=== PATIENT | male | born 1955 | race Caucasian/White ===

== ENCOUNTER → 2021-06-15 09:59 | Outpatient (BNVA) | payer OTHER, SELFPAY | PROVIDERS: Visit Provider Physician Assistant Medical | DX: S33.9XXA Sprain of unspecified parts of lumbar spine and pelvis, initial encounter (principal); X50.0XXA Overexertion from strenuous movement or load, initial encounter; X50.3XXA Overexertion from repetitive movements, initial encounter | CPT/HCPCS: 99203 ==

== ENCOUNTER → 2021-06-22 09:09 | Outpatient (BNVA) | payer OTHER, SELFPAY | PROVIDERS: Visit Provider Physician Assistant Medical | DX: S33.9XXA Sprain of unspecified parts of lumbar spine and pelvis, initial encounter (principal); X58.XXXA Exposure to other specified factors, initial encounter | CPT/HCPCS: 99213 ==

== ENCOUNTER 2025-06-02 08:58 | Outpatient (AMB) | payer MEDICARE, SELFPAY ==
--- OUTSIDE RECORDS SUMMARY | 2025-06-02 09:26 | XMS_ITS | Clinical Summary ---
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 for 90 days Active losartan (COZAAR) 100 mg tablet Take 1 tablet (100 mg total) by mouth 1 (one) time each day after lunch. Active tamsulosin (FLOMAX) 0.4 mg 24 hr capsule Take 1 capsule (0.4 mg total) by mouth 1 (one) time each day. Active traZODone (DESYREL) 50 mg tablet Take 1 tablet (50 mg total) by mouth at bedtime as needed. at bedtime 10/17/20 24 Active atorvastatin (LIPITOR) 40 mg tablet Take 1 tablet (40 mg total) by mouth 1 (one) time each day. for 90 days 03/21/20 25 Active doxepin (SINEquan) 10 mg capsule Take 1 capsule (10 mg total) by mouth at bedtime. 05/04/20 25 Active labetaloL (NORMODYNE) 200 mg tablet Take 1 tablet (200 mg total) by mouth 2 (two) times a day. Active omeprazole (PriLOSEC) [address] capsule Take 1 capsule (20 mg total) by mouth 1 (one) time each day if needed (ACID REFLUX). 04/21/20 25 Active UNKNOWN TO PATIENT PATIENT REPORTS 3 ASPIRIN, CANNOT VERIFY STRENGTH Active vancomycin (VANCOCIN) 500 mg injection Infuse 500 mg into a venous catheter See administration instructions for 10 days. Give 500 mg IV after dialysis on Tuesdays, , and Saturdays Stop date is 05/25/25 05/15/20 025 oxyCODONE (ROXICODONE) 5 mg immediate release tabletIndicati ons:Chest wall pain Take 1 tablet (5 mg total) by mouth every 6 (six) hours if needed for severe pain for up to 3 days. 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 ([facility] V24, [facility] V28) 02/17/2025 ESRD (end stage renal disease) ([facility] V24, [facility] V28) 11/15/2024 RSV (acute bronchiolitis due to respiratory syncytial virus) 11/15/2024 Acute hypoxic respiratory fa ilure ([facility] V24, [facility] V28) 11/15/2024 Hyperkalemia 11/13/2024 Acute kidney injury superimp osed on chronic kidney disease ([facility] V24) 01/25/2022 Overview (02/17/2025): D/C'd from [facility] 12/22/21 Anemia 01/25/2022 Overview (02/17/2025): secondary to chronic disease Diastolic heart failure ([facility] V24, [facility] V2 8) 01/25/2022 Overview (02/17/2025): D/C'd from [facility] 12/22/21 Chronic congestive heart failure ([facility] V24, [facility] V28) 01/25/2022 PVD (peripheral vascular disease) ([facility] V24) 01/25/2022 Hyperlipidemia 01/25/2022 Hypertensive chronic kidney disease with stage 5 chronic kidney disease or end stage renal disease ([facility] V24, [facility] V28) 09/02/2021 Stage 4 chronic kidney disease ([facility] V24, [facility] V28) 08/30/2021 Renal insufficiency 07/23/2012 Encounters Date Type Department Care Team Description 05/30/2025 6:52 PM EDT - 05/30/2025 9:43 PM EDT Emergency [facility] Emergency [address] [place] [phone] John Pizano MD Complication associated with dialysis catheter (Primary Dx) Discharge Disposition: Home or Self Care 05/27/2025 10:09 AM EDT - 05/27/2025 11:59 PM EDT Hospital Encounter [facility] Ultrasound [address] [place] [phone] Inguinal hernia of right side without obstruction or gangrene Discharge Disposition: Home or Self Care 05/20/2025 5:45 PM EDT - 05/22/2025 1:27 PM EDT Hospital Encounter [facility] Medical Surgical Unit [address] [place] [phone] Fredy Martinez MD Jones, Christopher, MD Kela, Kashyap Devendrabhai, MD ESRD (end stage renal disease) on dialysis ([facility] V24, [facility] V28) (Primary Dx); Chest wall pain Discharge Disposition: [place] [facility] [place] Reading General Surgery - [place] [address] [facility] [address] [place] [phone] Mehdi Phillips DO Prior Authorization (06/12/25 Dr. Mehdi Phillips) 05/11/2025 4:15 PM EDT - 05/15/2025 5:34 PM EDT Hospital Encounter [facility] Intermediate Care Unit B [address] [place] [phone] David Thorne MD Bukalo MD Deon Arauz, Desmond Husain MD Bacteremia (Primary Dx) Discharge Disposition: Home or Self Care 04/16/2025 1:29 AM EDT - 04/16/2025 2:42 AM EDT Emergency [facility] Emergency [address] [place] [address] Carlotta Negron MD Abrasion of right cornea, initial encounter (Primary Dx) Discharge Disposition: Home or Self Care 03/16/2025 2:45 PM EDT Consult General Surgery - [place] 175 [facility] [address] [place] [address] Mehdi Phillips, Inguinal hernia of right side without obstruction or gangrene (Primary Dx); Right inguinal hernia from Last 3 Months Surgical History Surgery Date Site/Laterality Comments FOOT SURGERY PROCEDURE: HISTORICAL FOOT SURGERY; COMMENT: Transmetatarsal amputation of foot OTHER SURGICAL HISTORY 05/27/2022 PROCEDURE: [facility] INSJ TUNNELED CVC W/O SUBQ PORT/[employer] AND [employer] WASHER AGE 4 YR/> OTHER SURGICAL HISTORY 05/27/2022 PROCEDURE: ULTRASOUND GUIDANCE FOR VASCULAR AC OTHER SURGICAL HISTORY 08/15/2022 PROCEDURE: VA INTRO CATHETER SUPERIOR/INFERIOR VENA CAVA OTHER SURGICAL HISTORY 08/15/2022 PROCEDURE: X-RAY EXAM OF CHEST VEINS OTHER SURGICAL HISTORY 08/28/2022 Left PROCEDURE: VA RPLCMT COMPL TATY CVC W/O SUBQ PORT/[employer] WASHER Medical History Medical History Date Comments Diabetes ([facility] V24, [facility] V28) DX:Diabetes ([facility]) Anemia DX:Anemia; COMME NT: secondary to chronic disease Chronic kidney disease, stag e 3 ([facility] V24, [facility] V28) DX:Chronic kidney disease, s tage 3 ([facility]) BPH with urinary obstruction DX: BPH with urinary obstruction Diabetic neuropathy ([facility] V24, [facility] V28) DX:Diabetic neuropathy ([facility]) History of osteomyelitis DX:Hist ory of osteomyelitis Lower extremity edema DX:Lower e xtremity edema; COMMENT: Chronic Acute kidney injury superimp osed on chronic kidney disease ([facility] V24) DX:Acute kidney i njury superimposed on chronic kidney disease ([facility]); COMMENT: D/C'd from [facility] 12/22/21 Urinary retention DX:Urinary ret ention; COMMENT: D/C'd from [facility] 12/22/21 Dialysis patient ([facility] V24) Family History Medical History Relation Name Comments Diabetes Father Hypertension Father Diabetes Mother Hypertension Mother Relation Name Status Comments Father Mother Social History Tobacco Use Types Packs/Day Years Used Date Smoking Tobacco: Never Smokeless Tobacco: Never Alcohol Use Standard Drinks/Week Comments Not Currently 0 (1 standard drink = 0.6 oz pur e alcohol) Interpersonal Safety Answer Date Record ed Physical Abuse 05/21/2025 Verbal Abuse 05/21/2025 Sex and Gender Information Value Date Recorded Sex Assigned at Male 11/10/2024 3:05 PM EST Legal Sex Male 9:48 PM EST Gender Identity Male 11/10/2024 3:05 PM EST Sexual Orientation Choose not to disclose 2024 3:49 PM EST Sexual Orientation Straight 11/27/2024 3: 49 PM EST Obstetrics History Last Filed Vital Signs Vital Sign Reading Time Taken Comments Blood Pressure 129/51 05/30/2025 6:19 PM EDT Pulse 85 05/30/2025 6:19 PM EDT Temperature 36.7 C (98.1 F) 05/30/2025 6:19 PM EDT Respiratory Rate 16 05/30/2025 6:19 PM EDT Oxygen Saturation 100% 05/30/2025 6:19 PM EDT Inhaled Oxygen Concentration - - Weight 75.8 kg (167 lb) 05/30/2025 6:19 PM EDT Height 175.3 cm (5' 9 ) 05/30/2025 6:19 PM EDT Body Mass Index 24.66 05/30/2025 6:19 PM EDT Plan of Treatment Upcoming Encounters Date Type Department Care Team (Latest Contact Info) Description 06/12/2025 12:30 PM EDT Hospital Encounter [facility] Main OR [address] [place] [phone] Mehdi Phillips, DO [address] [address] 06/12/2025 12:30 PM EDT - 06/12/2025 2:30 PM EDT Surgery [facility] OR [address] [place] [phone] Mehdi Phillips, DO [address] [address] DAVINCI REPAIR RIGHT INGUINAL HERNIA W/MESH [[id number] (CPT )] 06/29/2025 1:00 PM EDT Office Visit General Surgery - [place] 175 [facility] [address] [place] [phone] Mehdi Phillips, DO [address] [address] Scheduled Procedures Name Priority Associated Diagnoses Date/Ti me REPAIR HERNIA INGUINAL ROBOT Right inguinal hernia 06/12/2025 12:30 PM EDT Health Maintenance Due Date Last Done Comments COVID-19 Vaccine (#1) 1959 Diabetes: Annual Foot Exam 1964 Diabetes: Annual Retina Eye Exam 1964 Zoster Vaccines (1 of 2) 1973 RSV Immunization Adult Patients (1 - Risk 60-74 years 1-dose series) 2014 Pneumococcal Vaccine: 50+ Years (2 of 2 - PCV) 09/19/2019 09/19/2018 Colorectal Cancer Screening: Colonoscopy 10/22/2022 Hepatitis C Screening 10/22/2022 Medicare Annual Wellness Visit 10/22/2022 Social Influencers of Health Screening 10/22/2022 Depression Screening 11/12/2024 Influenza Vaccine (#1) 2025 Diabetes: Blood Sugar Control Test (HGBA1C) 11/26/2025 05/26/2025, 05/26/2025, 02/12/2025, Additional history exists Falls Risk Assessment 05/22/2026 05/22/2025 Hypertension/CHF/CAD Annual BMP Blood Test 05/22/2026 05/22/2025, 05/21/2025, 05/20/2025, Additional history exists DTaP,Tdap,and Td Vaccines (2 - Td or Tdap) 09/19/2028 09/19/2018 Cholesterol Screening (Lipid Panel) 05/26/2030 05/26/2025, 02/12/2025, 09/19/2018 HIB Vaccines Aged Out No longer eligi ble based on patient's age to complete this topic HPV Vaccines Aged Out No longer eligi ble based on patient's age to complete this topic Hepatitis A Vaccines Aged Out No long er eligible based on patient's age to complete this topic Hepatitis B Vaccines Aged Out No long er eligible based on patient's age to complete this topic IPV Vaccines Aged Out No longer eligi ble based on patient's age to complete this topic MMR Vaccines Aged Out No longer eligi ble based on patient's age to complete this topic Meningococcal ACWY Vaccine Aged Out N o longer eligible based on patient's age to complete this topic Meningococcal B Vaccine Aged Out No l onger eligible based on patient's age to complete this topic RSV Immunization Patients Under 20 months Aged Out No longer eligible based on patient's age to complete this topic Varicella Vaccines Aged Out No longer eligible based on patient's age to complete this topic Medical Devices Implanted Type Area Advanced Seal Delivery System Device Identifier Shelf Expiration Date Model / Serial / Lot Cath Glidepath [id number] m Order In Mult Of 5ea - [id number] Implanted:Qty : 1 on 05/15/2025 by Taras Gates MD at [facility] Dialysis Catheters Right: Internal Jugular CR [employer] [id number] 10/11/2026 [id number] / / [id number] Procedures Procedure Name Priority Date/Time Associated Diagnosis Comments US ABDOMEN LIMITED Routine 05/27/2025 10 :30 AM EDT Inguinal hernia of right side without obstruction or gangrene ECG ANNOTATED 05/23/2025 MAGNESIUM Routine 05/22/2025 5:31 AM EDT BASIC METABOLIC PANEL Routine 05/22/2025 5:31 AM EDT COMPLETE BLOOD COUNT Routine 05/22/2025 5:31 AM EDT PHOSPHORUS Routine 05/22/2025 5:31 AM EDT HEMODIALYSIS INPATIENT Routine 10:47 AM EDT DIFFERENTIAL BODY FLUID Routine 05/21/2025 9:52 AM EDT LACTATE DEHYDROGENASE, BODY FLUID Routine 05/21/2025 9:52 AM EDT PROTEIN, BODY FLUID Routine 05/21/2025 9 :52 AM EDT CELL COUNT WITH REFLEX DIFFERENTIAL, BODY FLUID Routine 05/21/2025 9:52 AM EDT CULTURE BODY FLUID WITH GRAM STAIN Routine 05/21/2025 9:52 AM EDT US THORACENTESIS W IMAGE GUIDANCE RIGHT Routine 05/21/2025 9:51 AM EDT LACTATE DEHYDROGENASE Add-On 05/21/2025 4:47 AM EDT CBC WITH AUTO DIFFERENTIAL Routine 05/21/2025 4:47 AM EDT VANCOMYCIN, RANDOM Routine 05/21/2025 4: 47 AM EDT PROTHROMBIN TIME WITH INR Routine 05/21/2025 4:47 AM EDT CBC AND DIFFERENTIAL Routine 05/21/2025 4:47 AM EDT BASIC METABOLIC PANEL Routine 05/21/2025 4:47 AM EDT LACTATE, WITH REFLEX STAT 05/20/2025 9:20 PM EDT CULTURE BLOOD STAT 05/20/2025 9:20 PM EDT CULTURE BLOOD STAT 05/20/2025 9:[address] CHEST W CONTRAST STAT 05/20/2025 8 :30 PM EDT ECG 12-LEAD STAT 05/20/2025 6:02 PM EDT TROPONIN I HIGH SENSITIVITY STAT 05/20/2025 5:35 PM EDT XR CHEST 2 VIEWS STAT 05/20/2025 4:30 PM EDT PROCALCITONIN Add-On 05/20/2025 4:14 PM EDT VANCOMYCIN, RANDOM Routine 05/20/2025 4: 14 PM EDT CBC WITH AUTO DIFFERENTIAL STAT 05/20/2025 4:14 PM EDT B-TYPE NATRIURETIC PEPTIDE STAT 05/20/2025 4:14 PM EDT MAGNESIUM STAT 05/20/2025 4:14 PM EDT LIPASE STAT 05/20/2025 4:14 PM EDT COMPREHENSIVE METABOLIC PANEL STAT 05/20/2025 4:14 PM EDT CBC AND DIFFERENTIAL STAT 05/20/2025 4:14 PM EDT TROPONIN I HIGH SENSITIVITY STAT 05/20/2025 4:14 PM EDT ECG 12-LEAD STAT 05/20/2025 4:10 PM EDT ECG ANNOTATED 05/16/2025 ECG ANNOTATED 05/16/2025 IR INSERT TUNNELED CVC WO PORT OR PUMP MORE 5YRS LEFT Routine 05/15/2025 10:50 AM EDT CBC WITH AUTO DIFFERENTIAL Routine 05/15/2025 5:40 AM EDT MAGNESIUM Routine 05/15/2025 5:40 AM EDT BASIC METABOLIC PANEL Routine 05/15/2025 5:40 AM EDT CBC AND DIFFERENTIAL Routine 05/15/2025 5:40 AM EDT HEMODIALYSIS INPATIENT Routine 10:57 PM EDT CBC WITH AUTO DIFFERENTIAL Routine 05/14/2025 5:57 AM EDT MAGNESIUM Routine 05/14/2025 5:57 AM EDT BASIC METABOLIC PANEL Routine 05/14/2025 5:57 AM EDT CBC AND DIFFERENTIAL Routine 05/14/2025 5:57 AM EDT VANCOMYCIN, RANDOM Routine 05/14/2025 5: 57 AM EDT TRANSTHORACIC ECHOCARDIOGRAM (TTE) COMPLETE Routine 05/13/2025 1:50 PM EDT Bacteremia POCT GLUCOSE BLOOD Routine 05/13/2025 8: 36 AM EDT CBC WITH AUTO DIFFERENTIAL Routine 05/13/2025 5:34 AM EDT MAGNESIUM Routine 05/13/2025 5:34 AM EDT BASIC METABOLIC PANEL Routine 05/13/2025 5:34 AM EDT CBC AND DIFFERENTIAL Routine 05/13/2025 5:34 AM EDT POCT GLUCOSE BLOOD Routine 05/12/2025 8: 39 PM EDT CULTURE BLOOD STAT 05/12/2025 8:20 PM EDT CULTURE BLOOD STAT 05/12/2025 8:10 PM EDT POCT GLUCOSE BLOOD Routine 05/12/2025 4: 33 PM EDT HEMODIALYSIS INPATIENT Routine 2:17 PM EDT POCT GLUCOSE BLOOD Routine 05/12/2025 11 :21 AM EDT POCT GLUCOSE BLOOD Routine 05/12/2025 7: 27 AM EDT TROPONIN I HIGH SENSITIVITY Routine 05/12/2025 5:31 AM EDT COMPLETE BLOOD COUNT Routine 05/12/2025 5:31 AM EDT BASIC METABOLIC PANEL Routine 05/12/2025 5:31 AM EDT ECG 12-LEAD STAT 05/11/2025 9:55 PM EDT POCT GLUCOSE BLOOD Routine 05/11/2025 9: 49 PM EDT TROPONIN I HIGH SENSITIVITY Routine 05/11/2025 8:45 PM EDT LACTATE, WITH REFLEX Timed 05/11/2025 8:45 PM EDT US ABDOMEN LIMITED Routine 05/11/2025 7: 37 PM EDT RESPIRATORY VIRUS PANEL MOLECULAR STUDY STAT 05/11/2025 6:54 PM EDT LACTATE Routine 05/11/2025 6:52 PM EDT LACTATE, WITH REFLEX STAT 05/11/2025 6:23 PM EDT TROPONIN I HIGH SENSITIVITY STAT 05/11/2025 6:23 PM EDT BLOOD CULTURE PATHOGENS BY PCR Routine 05/11/2025 6:23 PM EDT CULTURE BLOOD STAT 05/11/2025 6:23 PM EDT CULTURE BLOOD STAT 05/11/2025 6:[address] CHEST WO CONTRAST STAT 05/11/2025 5:50 PM EDT XR CHEST 2 VIEWS STAT 05/11/2025 3:28 PM EDT CBC WITH AUTO DIFFERENTIAL STAT 05/11/2025 2:46 PM EDT B-TYPE NATRIURETIC PEPTIDE STAT 05/11/2025 2:46 PM EDT MAGNESIUM STAT 05/11/2025 2:46 PM EDT LIPASE STAT 05/11/2025 2:46 PM EDT COMPREHENSIVE METABOLIC PANEL STAT 05/11/2025 2:46 PM EDT CBC AND DIFFERENTIAL STAT 05/11/2025 2:46 PM EDT TROPONIN I HIGH SENSITIVITY STAT 05/11/2025 2:46 PM EDT HEMOGLOBIN A1C Routine 11/15/2024 6:17 AM EST from Last 3 Months or Most Recently Relevant to Health Maintenance Results * US Abdomen Limited (05/27/2025 10:30 AM EDT) Only the most recent of2 resultswithin the time period is included. Anatomical Region Laterality Modality Body Ultrasound 05/29/2025 10:1 8 AM EDT Impressions 05/29/2025 10:19 AM EDT Moderate four-quadrant ascites. -------- FINAL REPORT -------- Dictated By: Ian Camarena Dictated Date: 05/29/2025 10:18 ET Assigned Physician: Ian Camarena Reviewed and Electronically Signed By: Ian Camarena Signed Date: 05/29/2025 10:19 ET Workstation ID: [id number] Transcribed By: Self Edit Transcribed Date: 05/29/2025 10:18 ET Narrative 05/29/2025 10:19 AM EDT PROCEDURE: Right upper quadrant ultrasound. HISTORY: 1-2 weeks prior to planned inguinal hernia surgery, drain ascites if seen. COMPARISON: 05/11/2025. TECHNIQUE: Grayscale ultrasound evaluation of the abdomen to assess for ascites. FINDINGS: Moderate four-quadrant ascites, more prominent in the upper abdomen. Nodular liver contour suggestive of cirrhosis. Detailed evaluation of the abdominal organs was not performed. Procedure Note Ian Camarena MD - 05/29/2025 PROCEDURE: Right upper quadrant ultrasound. HISTORY: 1-2 weeks prior to planned inguinal hernia surgery, drain ascitesif seen. COMPARISON: 05/11/2025. TECHNIQUE: Grayscale ultrasound evaluation of the abdomen to assess forascites. FINDINGS: Moderate four-quadrant ascites, more prominent in the upper abdomen.Nodular liver contour suggestive of cirrhosis. Detailed evaluation of theabdominal organs was not performed. IMPRESSION: Moderate four-quadrant ascites. -------- FINAL REPORT -------- Dictated By: Ian Camarena Dictated Date: 05/29/2025 10:18 ET Assigned Physician: Ian Camarena Reviewed and Electronically Signed By: Ian Camarena Signed Date: 05/29/2025 10:19 ET Workstation ID: [id number] Transcribed By: Self Edit Transcribed Date: 05/29/2025 10:18 ET us Mehdi Phillips DO IMG US PROCEDURES Final Result * ECG-Annotated (05/23/2025) Only the most recent of3 resultswithin the time period is included. us Provider Onbase ECG ORDERABLES Final Result * (ABNORMAL) Complete blood count (05/22/2025 5:31 AM EDT) Only the most recent of2 resultswithin the time period is included. WBC 11.1(H) 4.8 - 10.8 K/mcL LAB HEMETOLOGY METHOD 05/22/2025 7:00 AM EDT [facility] RBC 3.40(L) 4.50 - 5.50 M/mcL LAB HEMETOLOGY METHOD 05/22/2025 7:00 AM EDT [facility] Hemoglobin 10.2(L) 13.5 - 17.5 g/dL LAB [facility] Hematocrit 33.6(L) 42.0 - 54.0 % LAB HEMETOLOGY METHOD 05/22/2025 7:00 AM EDT [facility] MCV 100.0(H) 79.0 - 98.0 FL LAB [facility]OLOG[facility]22[facility]25 [facility] MCH 30.4 27.0 - 32.0 pcg LAB HEMETOLOGY METHOD 05/22/2025 7:00 AM EDT [facility] MCHC 30.4(L) 32.0 - 37.0 g/dL LAB HEMETOLOGY METHOD 05/22/2025 7:00 AM EDT [facility] RDW 16.5(H) 11.0 - 15.0 % LAB HEMETOLOGY METHOD 05/22/2025 7:00 AM [facility] Platelets 69(L) 130 - 400 K/mcL LAB HEMETOLOGY METHOD 05/22/2025 7:00 AM EDT [facility] Comment:previously verified by slide MPV 13.1(H) 7.0 - 11.0 FL LAB HEMETOLOGY METHOD 05/22/2025 7:00 AM EDT [facility] NRBC 0.0 <1.0 % LAB HEMETOLOGY METHOD 05/22/2025 7:00 AM [facility] NRBC Absolute 0.00 <0.10 K/mcL LAB HEMETOLOGY METHOD 05/22/2025 7:00 AM [facility] Blood Venous blood specimen / Unknown Venipuncture / Unknown 05/22/2025 5:31 AM EDT 05/22/2025 6:16 AM EDT Pedro Mcnally MD LAB BLOOD ORDERABLE S Final Result [facility] [address] [place] [address], * (ABNORMAL) Phosphorus (05/22/2025 5:31 AM EDT) [facility] Phosphorus 5.8(H) 2.5 - 4.5 mg/dL LAB CHEMISTRY METHOD 05/22/2025 7:12 AM EDT [facility] Blood Venous blood specimen / Unknown Venipuncture / Unknown 05/22/2025 5:31 AM EDT 05/22/2025 6:16 AM EDT us Pedro Mcnally MD LAB BLOOD ORDERABLE S Final Result Performing Organization Address City/[facility]/ZIP Co de Phone Number [facility] [address] [place] [address], [place] [phone] * Magnesium (05/22/2025 5:31 AM EDT) Only the most recent of6 resultswithin the time period is included. [facility] Magnesium 2.1 1.9 - 2.6 mg/dL LAB CHEMISTRY METHOD 05/22/2025 7:12 AM EDT [facility] Blood Venous blood specimen / Unknown Venipuncture / Unknown 05/22/2025 5:31 AM EDT 05/22/2025 6:16 AM EDT us Pedro Mcnally MD LAB BLOOD ORDERABLE S Final Result [facility] [address] [place] [address], [place] [phone] * (ABNORMAL) Basic metabolic panel (05/22/2025 5:31 AM EDT) Only the most recent of6 resultswithin the time period is included. [facility] Sodium 137 133 - 145 mmol/L LAB CHEMISTRY METHOD 05/22/2025 7:16 AM EDT [facility] Potassium 3.7 3.5 - 5.5 mmol/L LAB CHEMISTRY METHOD 05/22/2025 7:16 AM [facility] Chloride 99 96 - 110 mmol/L LAB CHEMISTRY METHOD 05/22/2025 7:16 AM [facility] CO2 28 21 - 32 mmol/L LAB CHEMISTRY METHOD 05/22/2025 7:16 AM [facility] Anion Gap 10 3 - 11 LAB CHEMISTRY METHOD 05/22/2025 7:16 AM [facility] Glucose 148(H) 70 - 100 mg/dL LAB CHEMISTRY METHOD 05/22/2025 7:16 AM [facility] BUN 27(H) 5 - 25 mg/dL LAB CHEMISTRY METHOD 05/22/2025 7:16 AM [facility] Creatinine 5.85(H) 0.70 - 1.30 mg/dL LAB CHEMISTRY METHOD 05/22/2025 7:16 AM [facility] eGFR 10(L) >=60 mL/min/1. 73m2 LAB CHEMISTRY METHOD 05/22/2025 7:16 AM [facility] Comment:Calculation based on the Chronic Kidney Disease Epidemiology Collaboration (CKD-EPI) equation refit without adjustment for race. BUN/Creatinine Ratio 4.6 LAB CHEMISTRY METHOD 05/22/2025 7:16 AM [facility] Calcium 8.4(L) 8.5 - 10.5 mg/dL LAB CHEMISTRY METHOD 05/22/2025 7:16 AM [facility] Blood Venous blood specimen / Unknown Venipuncture / Unknown 05/22/2025 5:31 AM EDT 05/22/2025 6:16 AM EDT Pedro Mcnally MD LAB BLOOD ORDERABLE S Final Result [facility] [address] [place] [address], [place] [phone] * Cell count with reflex differential, body fluid (05/21/2025 9:52 AM EDT) Body Fluid Total Nucleated Cells 12 /mm3 LAB HEMETOLOGY METHOD 05/21/2025 11:13 AM EDT [facility] Body Fluid RBC <1,000 /mm3 LAB HEMETOLOGY METHOD 05/21/2025 11:13 AM EDT [facility] Body Fluid Color Straw 05/21/2025 11:13 AM EDT [facility] Body Fluid Clarity Clear 05/21/2025 11:13 AM EDT [facility] Body Fluid Source Pleural 05/21/2025 11:13 AM EDT [facility] Pleural Fluid Non-blood Collection / Unknown 05/21/2025 9:52 AM EDT 05/21/2025 10:02 AM EDT Narrative [facility] - 05/21/2025 11:13 AM EDT No reference ranges have been established for body fluids. Clinical correlation recommended. Pedro Mcnally MD LAB BODY FLUIDS AND STOOLS ORDERABLES Final Result [facility] [address] [place] [address], * Culture body fluid with gram stain (05/21/2025 9:52 AM EDT) Fluid Culture No growth at 3 days LAB MICROBIOLOGY METHOD 05/24/2025 8:56 AM EDT [facility] Gram Stain Result No polymorphonuclear leukocytes, No epithelial cells, and No organisms noted 05/24/2025 8:56 AM EDT [facility] Pleural Fluid Structure of right pleural cavity / Unknown Non-blood Collection / Unknown 05/21/2025 9:52 AM EDT 05/21/2025 10:02 AM EDT us Pedro Mcnally MD LAB MICROBIOLOGY - GENERAL ORDERABLES Final Result Performing Organization Address [facility]/ZIP Co de Phone Number [facility] [address] [place] [address], [place] [phone] * Differential body fluid (05/21/2025 9:52 AM EDT) Fluid Neutrophils % 13 % 05/21/2025 11:13 AM EDT [facility] Fluid Lymphocytes % 10 % 05/21/2025 11:13 AM EDT [facility] Fluid Monocytes/Macrop hages 77 % 05/21/2025 11:13 AM EDT [facility] Fluid Eosinophils % 0 % 05/21/2025 11:13 AM EDT [facility] Fluid Basophils % 0 % 05/21/2025 11:13 AM EDT [facility] Fluid Other Cells % 0 % 05/21/2025 11:13 AM EDT [facility] Pleural Fluid Non-blood Collection / Unknown 05/21/2025 9:52 AM EDT 05/21/2025 10:02 AM EDT Narrative [facility] - 05/21/2025 11:13 AM EDT No reference ranges have been established for body fluids. Clinical correlation recommended. us Pedro Mcnally MD LAB BODY FLUIDS AND STOOLS ORDERABLES Final Result Performing Organization Address City/[facility]/ZIP Co de Phone Number [facility] [address] [place] [address], [place] [phone] * Protein, body fluid (05/21/2025 9:52 AM EDT) Protein, Fluid 2.7 See Comment g/dL LAB CHEMISTRY METHOD 05/21/2025 11:44 AM EDT [facility] Pleural Fluid Structure of right pleural cavity / Unknown Non-blood Collection / Unknown 05/21/2025 9:52 AM EDT 05/21/2025 10:02 AM EDT [facility] - 05/21/2025 11:44 AM EDT No reference ranges have been established for body fluids. Clinical correlation recommended. us Pedro Mcnally MD LAB BODY FLUIDS AND STOOLS ORDERABLES Final Result Performing Organization Address [facility] Co de Phone Number [facility] [address] [place] [address], [place] [phone] * Lactate dehydrogenase, body fluid (05/21/2025 9:52 AM EDT) LD, Fluid 91 See Comment unit/L LAB CHEMISTRY METHOD 05/21/2025 11:44 AM EDT [facility] Pleural Fluid Structure of right pleural cavity / Unknown Non-blood Collection / Unknown 05/21/2025 9:52 AM EDT 05/21/2025 10:02 AM EDT [facility] - 05/21/2025 11:44 AM EDT No reference ranges have been established for body fluids. Clinical correlation recommended. us Pedro Mcnally MD LAB BODY FLUIDS AND STOOLS ORDERABLES Final Result Performing Organization Address [facility] Co de Phone Number [facility] [address] [place] [address], [place] [phone] * US Thoracentesis w Image Guidance Right (05/21/2025 9:51 AM EDT) Anatomical Region Laterality Modality Body Right Ultrasound 05/21/2025 10:0 4 AM EDT Impressions 05/21/2025 10:06 AM EDT Impression: Right-sided ultrasound-guided thoracentesis as described. -------- FINAL REPORT -------- Dictated By: Jay Oneal Dictated Date: 05/21/2025 10:04 ET Assigned Physician: Jay Oneal Reviewed and Electronically Signed By: Jay Oneal Signed Date: 05/21/2025 10:06 ET Workstation ID: [id number] Transcribed By: Self Edit Transcribed Date: 05/21/2025 10:04 ET Narrative 05/21/2025 10:06 AM EDT Ultrasound-guided thoracentesis. History: Right-sided chest pain. Pleural effusion. History of chronic ascites. Comparison: CT chest yesterday Operators: Jay Oneal M.D. Technique: The risks and benefits of the procedure were discussed with the patient. The risks discussed include, but were not limited to: pain, bleeding, infection, organ injury and pneumothorax. The patient provided written informed consent. full time staff interpreter was utilized through the procedure. A timeout was performed prior to the procedure. Ultrasound was utilized to identify suitable access site in the right posterior chest. The overlying skin was prepped and draped in the usual and customary sterile fashion. Buffered 1% lidocaine was utilized to anesthetize the overlying skin and soft tissues. Under ultrasound guidance, a 5 Barbadian Yueh catheter was advanced into the pleural space. The catheter was advanced over the needle and the needle removed. After evacuation of fluid, the catheter was removed. Subsequent ultrasound demonstrates complete resolution of the pleural fluid. There was minimal bleeding. The patient tolerated procedure well with no immediate complications. Findings: Anechoic right-sided pleural effusion noted. A total of 750 cc of clear yellow pleural fluid was evacuated. Fluid samples were provided as requested. Procedure Note Jay Oneal MD - 05/21/2025 Ultrasound-guided thoracentesis. History: Right-sided chest pain. Pleural effusion. History of chronicascites. Comparison: CT chest yesterday Operators: Jay Oneal M.D. Technique: The risks and benefits of the procedure were discussed with thepatient. The risks discussed include, but were not limited to: pain,bleeding, infection, organ injury and pneumothorax. The patient providedwritten informed consent. full time staff interpreter was utilized through theprocedure. A timeout was performed prior to the procedure. Ultrasound was utilized toidentify suitable access site in the right posterior chest. The overlyingskin was prepped and draped in the usual and customary sterile fashion.Buffered 1% lidocaine was utilized to anesthetize the overlying skin andsoft tissues. Under ultrasound guidance, a 5 Barbadian Yueh catheter was advanced into thepleural space. The catheter was advanced over the needle and the needleremoved. After evacuation of fluid, the catheter was removed. Subsequentultrasound demonstrates complete resolution of the pleural fluid. Therewas minimal bleeding. The patient tolerated procedure well with noimmediate complications. Findings: Anechoic right-sided pleural effusion noted. A total of 750 ccof clear yellow pleural fluid was evacuated. Fluid samples were provided as requested. IMPRESSION: Impression: Right-sided ultrasound-guided thoracentesis as described. -------- FINAL REPORT -------- Dictated By: Jay Oneal Dictated Date: 05/21/2025 10:04 ET Assigned Physician: Jay Oneal Reviewed and Electronically Signed By: Jay Oneal Signed Date: 05/21/2025 10:06 ET Workstation ID: [id number] Transcribed By: Self Edit Transcribed Date: 05/21/2025 10:04 ET Saad FOSS IMG US PROCEDURES Final Result * (ABNORMAL) CBC auto differential (05/21/2025 4:47 AM EDT) Only the most recent of6 resultswithin the time period is included. WBC 9.5 4.8 - 10.8 K/mcL LAB HEMETOLOGY METHOD 05/21/2025 5:43 AM EDT [facility] RBC 3.60(L) 4.50 - 5.50 M/[facility] LAB HEMETOLOGY METHOD 05/21/2025 5:43 AM EDT [facility] Hemoglobin 10.8(L) 13.5 - 17.5 g/dL LAB HEMETOLOGY METHOD 05/21/2025 5:43 AM EDT [facility] Hematocrit 35.4(L) 42.0 - 54.0 % LAB HEMETOLOGY METHOD 05/21/2025 5:43 AM [facility] MCV 98.6(H) 79.0 - 98.0 FL LAB HEMETOLOGY METHOD 05/21/2025 5:43 AM [facility] MCH 30.1 27.0 - 32.0 pcg LAB HEMETOLOGY METHOD 05/21/2025 5:43 AM [facility] MCHC 30.5(L) 32.0 - 37.0 g/dL LAB HEMETOLOGY METHOD 05/21/2025 5:43 AM [facility] RDW 16.5(H) 11.0 - 15.0 % LAB HEMETOLOGY METHOD 05/21/2025 5:43 AM [facility] Platelets 74(L) 130 - 400 K/mcL LAB HEMETOLOGY METHOD 05/21/2025 5:43 AM [facility] Comment:previously verified by slide MPV 12.7(H) 7.0 - 11.0 FL LAB HEMETOLOGY METHOD 05/21/2025 5:43 AM [facility] NRBC 0.0 <1.0 % LAB HEMETOLOGY METHOD 05/21/2025 5:43 AM [facility] NRBC Absolute 0.00 <0.10 K/mcL LAB HEMETOLOGY METHOD 05/21/2025 5:43 AM [facility] Neutrophils Relative 80.5 % LAB HEMETOLOGY METHOD 05/21/2025 5:43 AM [facility] Lymphocytes Relative 9.8 % LAB HEMETOLOGY METHOD 05/21/2025 5:43 AM [facility] Monocytes Relative 6.2 % LAB HEMETOLOGY METHOD 05/21/2025 5:43 AM [facility] Eosinophils Relative 2.7 % LAB HEMETOLOGY METHOD 05/21/2025 5:43 AM [facility] Basophils Relative 0.3 % LAB HEMETOLOGY METHOD 05/21/2025 5:43 AM EDT [facility] Immature Granulocytes Relative 0.5 % LAB HEMETOLOGY METHOD 05/21/2025 5:43 AM EDT [facility] Neutrophils Absolute 7.61(H) 1.50 - 7.00 K/mcL LAB HEMETOLOGY METHOD 05/21/2025 5:43 AM EDT [facility] Lymphocytes Absolute 0.93(L) 1.00 - 5.00 K/mcL LAB HEMETOLOGY METHOD 05/21/2025 5:43 AM EDT [facility] Monocytes Absolute 0.59 0.20 - 1.00 K/mcL LAB HEMETOLOGY METHOD 05/21/2025 5:43 AM EDT [facility] Eosinophils Absolute 0.26 0.00 - 0.50 K/mcL LAB HEMETOLOGY METHOD 05/21/2025 5:43 AM EDT [facility] Basophils Absolute 0.03 0.00 - 0.20 K/mcL LAB HEMETOLOGY METHOD 05/21/2025 5:43 AM EDT [facility] Immature Granulocytes Absolute 0.05(H) 0.00 - 0.03 K/mcL LAB HEMETOLOGY METHOD 05/21/2025 5:43 AM EDT [facility] Blood Venous blood specimen / Unknown Venipuncture / Unknown 05/21/2025 4:47 AM EDT 05/21/2025 5:20 AM EDT us Zeus Wong MD LAB BLOOD ORDERABLES Final Result [facility] [address] [place] [address], * (ABNORMAL) Prothrombin time with INR (05/21/2025 4:47 AM EDT) Protime 16.5(H) 10.6 - 13.9 sec LAB COAGULATION METHOD 05/21/2025 5:28 AM EDT [facility] INR 1.3 LAB COAGULATION METHOD 05/21/2025 5:28 AM EDT [facility] Blood Venous blood specimen / Unknown Venipuncture / Unknown 05/21/2025 4:47 AM EDT 05/21/2025 5:20 AM EDT Zeus Wong MD LAB BLOOD ORDERABLES Final Result Performing Organization Address City/[facility]/ZIP Co de Phone Number [facility] [address] [place] [address], [place] [phone] * Lactate dehydrogenase (05/21/2025 4:47 AM EDT) LDH 221 120 - 246 unit/L LAB CHEMISTRY METHOD 05/21/2025 9:26 AM EDT [facility] Blood Venous blood specimen / Unknown Venipuncture / Unknown 05/21/2025 4:47 AM EDT 05/21/2025 5:20 AM EDT Pedro Mcnally MD LAB BLOOD ORDERABLE S Final Result Performing Organization Address City/[facility]/ZIP Co de Phone Number [facility] [address] [place] [address], [place] [phone] * Vancomycin random (05/21/2025 4:47 AM EDT) Only the most recent of3 resultswithin the time period is included. Vancomycin Rm 24.2 mcg/mL LAB CHEMISTRY METHOD 05/21/2025 5:47 AM EDT [facility] Blood Venous blood specimen / Unknown Venipuncture / Unknown 05/21/2025 4:47 AM EDT 05/21/2025 5:20 AM EDT Fredy Martinez MD LAB BLOOD ORDERABLES Final Resu lt Performing Organization Address City/[facility]/ZIP Co de Phone Number [facility] [address] [place] [address], [place] [phone] * Lactate, with reflex (05/20/2025 9:20 PM EDT) Only the most recent of3 resultswithin the time period is included. LACTIC ACID 2.0 0.4 - 2.0 mmol/L LAB CHEMISTRY METHOD 05/20/2025 10:12 PM EDT [facility] Blood Venous blood specimen / Unknown Venipuncture / Unknown 05/20/2025 9:20 PM EDT 05/20/2025 9:30 PM EDT Fredy Martinez MD LAB BLOOD ORDERABLES Final Resu lt Performing Organization Address [facility] Co de Phone Number [facility] [address] [place] [address], [place] [phone] * Culture blood (05/20/2025 9:20 PM EDT) Only the most recent of6 resultswithin the time period is included. Culture, Blood No growth at 5 days 05/25/2025 10:02 PM EDT [facility] Blood Venous blood specimen / Unknown Venipuncture / Unknown 05/20/2025 9:20 PM EDT 05/20/2025 9:30 PM EDT Fredy Martinez MD LAB MICROBIOLOGY - GENERAL ORDYuko RABVIDHI Final Result Performing Organization Address [facility] Co de Phone Number [facility] [address] [place] [address], [place] [phone] * CT Chest w Contrast (05/20/2025 8:30 PM EDT) Anatomical Region Laterality Modality Body Computed Tomogra phy 05/20/2025 9:14 PM EDT Impressions 05/20/2025 9:14 PM EDT Impression: No hematoma or abscess is identified adjacent to the central line. Findings consistent with pulmonary edema. Moderate to large right pleural effusion. Mild mediastinal adenopathy may be reactive but is technically indeterminate recommend follow-up. Large amount of ascites in the upper abdomen. This document has been electronically signed by: Natalio Mosher MD on 05/20/2025 21:14:09 Narrative 05/20/2025 9:14 PM EDT INDICATION: right chest pain around new dialysis catheter, cq hematoma/abscess/cellulitis/ptx CT of the chest utilizing intravenous contrast. Comparison 05/11/2025. Findings: There is evidence of prior granulomatous disease. There is a moderate to large right pleural effusion. Mild mediastinal adenopathy is technically indeterminate. There is a right internal jugular central line. A small portion of the catheter in the neck is incompletely visualized. No definite hematoma or abscess is identified. There is interstitial pulmonary edema. Mild patchy airspace opacities bilaterally may represent mild edema as well. The liver is mildly lobulated. There is a large amount of ascites. Procedure Note David Mosher MD - 05/20/2025 INDICATION: right chest pain around new dialysis catheter, cq hematoma/abscess/cellulitis/ptx CT of the chest utilizing intravenous contrast. Comparison 05/11/2025. Findings: There is evidence of prior granulomatous disease. There is a moderate to large right pleural effusion. Mild mediastinal adenopathy is technically indeterminate. There is a right internal jugular central line. A small portion of the catheter in the neck is incompletely visualized. No definite hematoma or abscess is identified. There is interstitial pulmonary edema. Mild patchy airspace opacities bilaterally may represent mild edema as well. The liver is mildly lobulated. There is a large amount of ascites. IMPRESSION: Impression: No hematoma or abscess is identified adjacent to the central line. Findings consistent with pulmonary edema. Moderate to large right pleural effusion. Mild mediastinal adenopathy may be reactive but is technically indeterminate recommend follow-up. Large amount of ascites in the upper abdomen. This document has been electronically signed by: Natalio Mosher MD on 05/20/2025 21:14:09 us Fredy Martinez MD IMG CT PROCEDURES Final Result * ECG 12 lead (05/20/2025 6:02 PM EDT) Only the most recent of3 resultswithin the time period is included. [facility] Ventricular Rate ECG 79 BPM GEMUSE Atrial Rate 79 BPM GEMUSE P-R Interval 140 ms GEMUSE QRS Duration 114 ms GEMUSE Q-T Interval 442 ms GEMUSE QTc 506 ms GEMUSE P Wave [place] 47 degrees GEMUSE R [place] -43 degrees GEMUSE T [place] 88 degrees GEMUSE ECG Interpretation Normal sinus rhythm Left axis deviation Poor R wave progression Nonspecific ST and T wave abnormality Abnormal ECG When compared with ECG of 20-MAY-2025 16:10, (unconfirmed) No significant change was found Confirmed by Renuka MARTINES YUFENG ([id number]) on 05/21/2025 8:29:33 AM GEMUSE 05/20/2025 6:02 PM EDT 05/21/2025 8:29 AM EDT Fredy Martinez MD ECG ORDERABLES Final Result GEMUSE * (ABNORMAL) Troponin I high sensitivity (05/20/2025 5:35 PM EDT) Only the most recent of6 resultswithin the time period is included. [facility] High Sensitivity Troponin I 313(HH) <=79 ng/L LAB CHEMISTRY METHOD 05/20/2025 7:29 PM EDT [facility] Blood Venous blood specimen / Unknown Venipuncture / Unknown 05/20/2025 5:35 PM EDT 05/20/2025 6:22 PM EDT Narrative [facility] - 05/20/2025 7:29 PM EDT High levels of biotin in samples may falsely decrease hsTroponin values. Use caution when interpreting hsTroponin results in patients taking biotin who exhibit renal impairment (eGFR <60) or in patients taking more than 20 mg/day of biotin. us Fredy Martinez MD LAB BLOOD ORDERABLES Final Resu lt [facility] [address] [place] [address], [place] [phone] * XR Chest 2 Views (05/20/2025 4:30 PM EDT) Only the most recent of2 resultswithin the time period is included. Anatomical Region Laterality Modality Body Radiographic Yuliana ging 05/20/2025 4:54 PM EDT Impressions 05/20/2025 4:56 PM EDT Impression: 1. Stable mild cardiomegaly. 2. Small right pleural effusion, unchanged. 3. Permacath well-positioned. Telerad PIPO ([id number]) -------- FINAL REPORT -------- Dictated By: Becki Aviles Dictated Date: 05/20/2025 16:54 ET Assigned Physician: Becki Aviles Reviewed and Electronically Signed By: Becki Aviles Signed Date: 05/20/2025 16:56 ET Workstation ID: [id number] Transcribed By: Self Edit Transcribed Date: 05/20/2025 16:54 ET Narrative 05/20/2025 4:56 PM EDT History: Chest pain. Comparison: 05/11/25, 11/13/24, thoracic CT 05/11/25 Findings: PA and lateral views. The cardiac silhouette remains mildly enlarged. A permacath is seen on the right, the tip position at the level of the right atrium. This is new from the previous study. The left permacath noted previously is no longer seen. The pulmonary vascularity appears within normal limits. No hilar enlargement is seen. The right costophrenic angle is blunted, consistent with a small pleural effusion, also noted previously. Procedure Note Becki Aviles MD - 05/20/2025 History: Chest pain. Comparison: 05/11/25, 11/13/24, thoracic CT 05/11/25 Findings: PA and lateral views. The cardiac silhouette remains mildly enlarged. Apermacath is seen on the right, the tip position at the level of the rightatrium. This is new from the previous study. The left permacath notedpreviously is no longer seen. The pulmonary vascularity appears within normal limits. No hilarenlargement is seen. The right costophrenic angle is blunted, consistentwith a small pleural effusion, also noted previously. IMPRESSION: Impression: 1. Stable mild cardiomegaly. 2. Small right pleural effusion, unchanged. 3. Permacath well-positioned. Telerad PA ([id number]) -------- FINAL REPORT -------- Dictated By: Becki Aviles Dictated Date: 05/20/2025 16:54 ET Assigned Physician: Becki Aviles Reviewed and Electronically Signed By: Becki Aviles Signed Date: 05/20/2025 16:56 ET Workstation ID: [id number] Transcribed By: Self Edit Transcribed Date: 05/20/2025 16:54 ET us Fredy Martinez MD IMG XR PROCEDURES Final Result * (ABNORMAL) Procalcitonin (05/20/2025 4:14 PM EDT) Procalcitonin 0.86(H) <=0.16 ng/mL LAB CHEMISTRY METHOD 05/21/2025 10:10 AM EDT [facility] Blood Venous blood specimen / Unknown Venipuncture / Unknown 05/20/2025 4:14 PM EDT 05/20/2025 4:39 PM EDT Narrative [facility] - 05/21/2025 10:10 AM EDT Procalcitonin > 2.00 ng/ml: Procalcitonin Levels above 2.00 ng/ml, on the first day of ICU admission represent a high risk for progression to severe sepsis and/or septic shock. Procalcitonin < 0.50 ng/ml: Procalcitonin levels below 0.50 ng/ml on the first day of ICU admission represent a low risk for progression to severe sepsis and/or septic shock. Concentrations <0.5 ng/mL do not exclude an infection, on account of local ized infections (without systemic signs) which can be associated with such low concentrations, or a systemic infection in its initial stages (<6 hours). Furthermore, increased procalcitonin can occur without infection. PCT concentrations between 0.5 and 2.0 ng/mL should be interpreted taking into account the patient's history. It is recommended to retest PCT within 6-24 hours if any concentrations <2.0 ng/mL are obtained. us Zeus Wong MD LAB BLOOD ORDERABLES Final Result Performing Organization Address [facility] de Phone Number [facility] [address] [place] [address], [place] [phone] * (ABNORMAL) B-type natriuretic peptide (05/20/2025 4:14 PM EDT) Only the most recent of2 resultswithin the time period is included. BNP >5,000(H) <=100 pcg/mL LAB CHEMISTRY METHOD 05/20/2025 5:38 PM EDT [facility] Blood Venous blood specimen / Unknown Venipuncture / Unknown 05/20/2025 4:14 PM EDT 05/20/2025 4:39 PM EDT us Fredy Martinez MD LAB BLOOD ORDERABLES Final Resu lt Performing Organization Address [facility] de Phone Number [facility] [address] [place] [address], [place] [phone] * Lipase (05/20/2025 4:14 PM EDT) Only the most recent of2 resultswithin the time period is included. Lipase 15 13 - 75 unit/L LAB CHEMISTRY METHOD 05/20/2025 6:02 PM EDT [facility] Blood Venous blood specimen / Unknown Venipuncture / Unknown 05/20/2025 4:14 PM EDT 05/20/2025 4:39 PM EDT us Fredy Martinez MD LAB BLOOD ORDERABLES Final Resu lt [facility] [address] [place] [address], * (ABNORMAL) Comprehensive metabolic panel (05/20/2025 4:14 PM EDT) Only the most recent of2 resultswithin the time period is included. Sodium 135 133 - 145 mmol/L LAB CHEMISTRY METHOD 05/20/2025 6:02 PM [facility] Potassium 4.1 3.5 - 5.5 mmol/L LAB CHEMISTRY METHOD 05/20/2025 6:02 PM [facility] Chloride 99 96 - 110 mmol/L LAB CHEMISTRY METHOD 05/20/2025 6:02 PM [facility] CO2 24 21 - 32 mmol/L LAB CHEMISTRY METHOD 05/20/2025 6:02 PM [facility] Anion Gap 12(H) 3 - 11 LAB CHEMISTRY METHOD 05/20/2025 6:02 PM [facility] Glucose 146(H) 70 - 100 mg/dL LAB CHEMISTRY METHOD 05/20/2025 6:02 PM [facility] BUN 44(H) 5 - 25 mg/dL LAB CHEMISTRY METHOD 05/20/2025 6:02 PM [facility] Creatinine 8.30(H) 0.70 - 1.30 mg/dL LAB CHEMISTRY METHOD 05/20/2025 6:02 PM [facility] eGFR 6(L) >=60 mL/min/1. 73m2 LAB CHEMISTRY METHOD 05/20/2025 6:02 PM [facility] Comment:Calculation based on the Chronic Kidney Disease Epidemiology Collaboration (CKD-EPI) equation refit without adjustment for race. BUN/Creatinine Ratio 5.3 LAB CHEMISTRY METHOD 05/20/2025 6:02 PM [facility] Calcium 8.9 8.5 - 10.5 mg/dL LAB CHEMISTRY METHOD 05/20/2025 6:02 PM EDT [facility] AST (SGOT) 16 10 - 42 unit/L LAB CHEMISTRY METHOD 05/20/2025 6:02 PM EDT [facility] ALT (SGPT) 14 10 - 60 unit/L LAB CHEMISTRY METHOD 05/20/2025 6:02 PM EDT [facility] Alkaline Phosphatase 111 42 - 121 unit/L LAB CHEMISTRY METHOD 05/20/2025 6:02 PM EDT [facility] Total Protein 7.5 6.0 - 8.0 g/dL LAB CHEMISTRY METHOD 05/20/2025 6:02 PM EDT [facility] Albumin 3.0(L) 3.2 - 5.0 g/dL LAB CHEMISTRY METHOD 05/20/2025 6:02 PM EDT [facility] Total Bilirubin 1.0 0.0 - 1.4 mg/dL LAB CHEMISTRY METHOD 05/20/2025 6:02 PM EDT [facility] Blood Venous blood specimen / Unknown Venipuncture / Unknown 05/20/2025 4:14 PM EDT 05/20/2025 4:39 PM EDT us Fredy Martinez MD LAB BLOOD ORDERABLES Final Resu lt [facility] [address] [place] [address], * IR Insert Tunneled CVC wo Port or Pump More 5yrs Left (05/15/2025 10:50 AM EDT) Anatomical Region Laterality Modality Left Interventional R adiology 05/15/2025 11:5 6 AM EDT Impressions 05/15/2025 11:59 AM EDT Removal of left-sided tunneled dialysis catheter. Placement of a 14 Barb[place] 23 cm dual-lumen cuffed tunneled dialysis catheter with the tip in the proximal right atrium. This line may be used immediately. -------- FINAL REPORT -------- Dictated By: Taras Gates Dictated Date: 05/15/2025 11:56 ET Assigned Physician: Taras Gates Reviewed and Electronically Signed By: Taras Gates Signed Date: 05/15/2025 11:59 ET Workstation ID: [id number] Transcribed By: Self Edit Transcribed Date: 05/15/2025 11:56 ET Narrative 05/15/2025 11:59 AM EDT HISTORY: Renal failure, coagulase-negative bacteremia with negative blood cultures TECHNIQUE: Case discussed with nephrology. Decision made to remove left-sided dialysis catheter in place a new catheter on the right side. Informed consent was obtained using a Georgian-speaking interpreter deaf after the risks, benefits and alternatives particularly to procedure were discussed in detail. Any questions were answered in detail. Informed consent was signed by the patient/patient's proxy and provider. Ultrasound interrogation demonstrates occluded of the mid to upper right internal jugular vein with patency of the most distal portion above the clavicle. Multiple venous collaterals visualized overlying the right lower neck. Left-sided dialysis catheter was draped and prepped sterilely. Timeout performed. Local anesthetic administered. Catheter removed completely and Dermabond applied to the exit site. Next the patient was placed supine on the angiographic table and the right lower neck and upper chest were draped and prepped using maximum sterile barrier. 2% buffered lidocaine was used as local anesthetic. Moderate intravenous sedation was initiated and maintained for 15 minutes while the patient was independently monitored by the radiology nurse under the supervision of the interventional radiologist. A total of 1.5 mg of Versed and 50 mcg of fentanyl administered during the procedure. Under real-time ultrasound guidance access was obtained into the internal jugular vein using a micropuncture needle. The microwire was advanced through the needle and fluoroscopically guided into the superior vena cava. The needle was exchanged for the 4 Barbadian transition sheath. A 0.035 wire was then advanced through the sheath and into the inferior vena cava under fluoroscopy. The sheath was then exchanged for a 7 Barbadian vascular dilator. Attention was then turned to the right upper chest and the appropriate area was anesthetized with 2% lidocaine. A small dermatotomy was performed and then a tunnel was created from the dermatotomy to the initial venous access site. The catheter was advanced through the tunnel. The initial venous access site was then serially dilated up to a 15 Barbadian peel- away sheath. The catheter was then advanced through the valve peel-away sheath which was subsequently removed. The position of the catheter was checked under fluoroscopy. The catheter was flushed and heparinized as per protocol. The initial venous access site was approximated with a single vertical mattress suture. The catheter was sutured to the skin with a suture around the exit site. These sutures should be removed in approximately 10 days. A sterile dressing was applied. The patient tolerated the procedure well and left the department in stable condition without any immediate complications. FINDINGS: Initial ultrasound image demonstrates patent internal jugular vein. Final spot radiograph demonstrates newly placed tunneled dialysis catheter with the tip in the proximal right atrium. Total patient dose (air kerma): 8 mGy Procedure Note Taras Gates MD - 05/15/2025 HISTORY: Renal failure, coagulase-negative bacteremia with negative bloodcultures TECHNIQUE: Case discussed with nephrology. Decision made to removeleft-sided dialysis catheter in place a new catheter on the right side. Informed consent was obtained using a Georgian-speaking interpreter deaf afterthe risks, benefits and alternatives particularly to procedure werediscussed in detail. Any questions were answered in detail. Informedconsent was signed by the patient/patient's proxy and provider. Ultrasound interrogation demonstrates occluded of the mid to upper rightinternal jugular vein with patency of the most distal portion above theclavicle. Multiple venous collaterals visualized overlying the right lowerneck. Left-sided dialysis catheter was draped and prepped sterilely. Timeoutperformed. Local anesthetic administered. Catheter removed completely andDermabond applied to the exit site. Next the patient was placed supine on the angiographic table and the rightlower neck and upper chest were draped and prepped using maximum sterilebarrier. 2% buffered lidocaine was used as local anesthetic. Moderate intravenous sedation was initiated and maintained for 15 minuteswhile the patient was independently monitored by the radiology nurse underthe supervision of the interventional radiologist. A total of 1.5 mg ofVersed and 50 mcg of fentanyl administered during the procedure. Under real-time ultrasound guidance access was obtained into the internaljugular vein using a micropuncture needle. The microwire was advancedthrough the needle and fluoroscopically guided into the superior venacava. The needle was exchanged for the 4 Barbadian transition sheath. A 0.035wire was then advanced through the sheath and into the inferior vena cavaunder fluoroscopy. The sheath was then exchanged for a 7 Barbadian vasculardilator. Attention was then turned to the right upper chest and the appropriatearea was anesthetized with 2% lidocaine. A small dermatotomy was performedand then a tunnel was created from the dermatotomy to the initial venousaccess site. The catheter was advanced through the tunnel. The initialvenous access site was then serially dilated up to a 15 Barbadian peel-awaysheath. The catheter was then advanced through the valve peel-away sheathwhich was subsequently removed. The position of the catheter was checkedunder fluoroscopy. The catheter was flushed and heparinized as perprotocol. The initial venous access site was approximated with a singlevertical mattress suture. The catheter was sutured to the skin with asuture around the exit site. These sutures should be removed inapproximately 10 days. A sterile dressing was applied. The patient tolerated the procedure well and left the department in stablecondition without any immediate complications. FINDINGS: Initial ultrasound image demonstrates patent internal jugular vein. Final spot radiograph demonstrates newly placed tunneled dialysis catheterwith the tip in the proximal right atrium. Total patient dose (air kerma): 8 mGy IMPRESSION: Removal of left-sided tunneled dialysis catheter. Placement of a 14 Barbadian 23 cm dual-lumen cuffed tunneled dialysiscatheter with the tip in the proximal right atrium. This line may be usedimmediately. -------- FINAL REPORT -------- Dictated By: Taras Gates Dictated Date: 05/15/2025 11:56 ET Assigned Physician: Taras Gates Reviewed and Electronically Signed By: Taras Gates Signed Date: 05/15/2025 11:59 ET Workstation ID: [id number] Transcribed By: Self Edit Transcribed Date: 05/15/2025 11:56 ET Taras Gates MD IMG IR PROCEDURES Final Result * (ABNORMAL) TRANSTHORACIC ECHOCARDIOGRAM (TTE) COMPLETE (05/13/2025 1:50 PM EDT) [facility] LV EDV (A2C) 150 mL CV PACS LV EDV (A4C) 159 mL CV PACS LV Diastolic Volume (BP) 156(A) 62 - 150 mL CV PACS LV ESV (A2C) 92 mL CV PACS LV ESV (A4C) 91 mL CV PACS LV Systolic Volume (BP) 90(A) 21 - 61 mL CV PACS IVSD 0.9 0.6 - 1.0 cm CV PACS LVIDD 5.6 4.2 - 5.8 cm CV PACS LVIDS 4.3(A) 2.5 - 4.0 cm CV PACS LVOT Diameter 2.4 cm CV PACS LVOT Mean Adán 0.5 m/s CV PACS LVOT Mean Grad 1 mmHg CV PACS LVOT Peak VTI 17.3 cm CV PACS LVOT Peak Adán 0.8 m/s CV PACS LVOT Peak Gradient 3 mmHg CV PACS LVPWD 0.9 0.6 - 1.0 cm CV PACS MV E' Tissue Velocity Lateral 10 cm/s CV PACS MV E' Tissue Velocity Septal 4 cm/s CV PACS Ejection Fraction (A2C) 39 % CV PACS Ejection Fraction (A4C) 43 % CV PACS Ejection Fraction (BP) 42 % CV PACS LVOT Area 4.5 cm2 CV PACS LVOT Stroke Volume 78 mL CV PACS Left Atrium Minor [place] 5.8 cm CV PACS Left Atrium Major [place] 6.2 cm CV PACS LA Area Sys (A2C) 24 cm2 CV PACS LA Area Sys (A4C) 26 cm2 CV PACS LA Volume (BP) 87 mL CV PACS RA Area 21.1 cm2 CV PACS RA 2D Volume 63 mL CV PACS AV Regurgitation PHT 198 ms CV PACS AR Max Velocity 3.6 m/s CV PACS AV Peak Gradient 50 mmHg CV PACS AV Peak Adán 2.7 m/s CV PACS AV Peak Gradient 30 mmHg CV PACS AV Mean Gradient 19 mmHg CV PACS Ao VTI 63.0 cm CV PACS AV Area Continuity Equation 1.2 cm2 CV PACS AV Area Peak Velocity 1.4 cm2 CV PACS Aortic Sinus Valsalva 3.5 cm CV PACS Ascending Aorta 3.8 cm CV PACS IVC Proximal 2.4 cm CV PACS MR PISA Nyquist Adán 39 cm/s CV PACS PISA MR Radius 0.60 cm CV PACS MR VTI 154.0 cm CV PACS MR PISA Max Velocity 4.8 m/s CV PACS MR Peak Gradient 91 mmHg CV PACS MV Deceleration Cochran 7.0 m/s2 CV PACS E Wave Deceleration Time 152 119 - 242 ms CV PACS MV PHT 45 ms CV PACS MV Peak A Adán 0.50 m/s CV PACS MV Peak E Adán 1.07 m/s CV PACS PISA MR EROA 0.18 cm2 CV PACS MV Area PHT 4.9 cm2 CV PACS PISA Regurgitant Volume 28 mL CV PACS RV Diastolic Basal Dimension 4.3(A) 2.5 - 4.1 cm CV PACS RV S' 10 cm/s CV PACS TAPSE 19 mm CV PACS TR Peak Velocity 3.63 m/s CV PACS TR Peak Gradient 53 mmHg CV PACS LV ESV Index (A4C) 48 mL/m2 CV PACS LV EDV Index (A4C) 84 mL/m2 CV PACS E/E' Ratio Septal 27 CV PACS E/E' Ratio Averaged 19 CV PACS LVOT Stroke Index 41 mL/m2 CV PACS Relative Wall Thickness ratio 0.32 CV PACS LVOT:AV VTI Index 0.27 CV PACS FS 23 % CV PACS LV Mass 2D 192 g CV PACS Ascending Aorta Index 2.01 cm/m2 CV PACS LVOT flow 226 mL/s CV PACS RA 2D Volume Index 33 mL/m2 CV PACS VERONICA Index (VTI) 0.66 cm2/m2 CV PACS VERONICA Index (Pk Adán) 0.74 cm2/m2 CV PACS LVIDD Index 2.96 cm/m2 CV PACS LVIDS Index 2.28 cm/m2 CV PACS AV Velocity Ratio 0.30 CV PACS E/A Ratio 2.1 CV PACS E/E' Ratio Lateral 11 CV PACS LV Systolic Volume Index (BP) 48 mL/m2 CV PACS LV Diastolic Volume Index (BP) 83 mL/m2 CV PACS LA Volume Index (BP) 46 mL/m2 CV PACS LV Mass Index 2D 101 g/m2 CV PACS LV EDV Index (A2C) 79 mL/m2 CV PACS LV ESV Index (A2C) 49 mL/m2 CV PACS BSA 1.98 m2 CV PACS Right Ventricular Peak Systolic Pressure 68 mmHg CV PACS Est. RA Pressure 15 mmHg CV PACS Anatomical Region Laterality Modality Ultrasound Narrative 05/13/2025 3:32 PM EDT Left ventricle cavity size is normal. Left ventricular systolic function is mildly decreased with an ejection fraction of 40-45%. Left ventricle wall thickness is normal. There is Grade III (severe) diastolic dysfunction, restrictive filling. Right ventricular systolic function is normal. Aortic valve demonstrates moderate stenosis and severe regurgitation. 28 mmHg peak 19 mmHg mean gradient Tricuspid valve demonstrates moderate regurgitation. Moderate mitral insufficiency Left Ventricle Left ventricle cavity size is normal. Wall thickness is normal. Systolic function is mildly decreased with an ejection fraction of 40-45%. Global hypokinesis more prominent in the septum. There is Grade III (severe) diastolic dysfunction, restrictive filling. Right Ventricle Enlarged right ventricular size. Systolic function is normal. Left Atrium Left atrium cavity is moderately dilated. Right Atrium Right atrium cavity is mildly dilated. IVC/SVC RA pressures is estimated to be 15 mmHg (IVC diameter >21 mm and decreases <50% during inspiration). Mitral Valve The leaflets are mildly thickened. There is annular calcification. There is mild to moderate regurgitation. There is no evidence of mitral valve stenosis. Tricuspid Valve Tricuspid valve structure is normal. There is moderate regurgitation. There is no evidence of tricuspid valve stenosis. The right ventricular systolic pressure is elevated at 68 mmHg. Aortic Valve The aortic valve is trileaflet. Thickened aortic valve leaflets. There is severe regurgitation. There is moderate stenosis. Pulmonic Valve Pulmonic valve structure is normal. There is trace pulmonic valve regurgitation. There is no evidence of pulmonic valve stenosis. Ascending Aorta Normal aortic sinus. Ascending aorta 3.8 cm. Transverse aorta not well visualized. Pericardium Pericardium appears normal. There is no pericardial effusion. Study Details Overall the study quality was adequate. us Desmond Chavarria MD CV ECHO PROCEDURES Final Resu lt * (ABNORMAL) POCT Glucose, blood (05/13/2025 8:36 AM EDT) Only the most recent of6 resultswithin the time period is included. Glucose POCT 118(H) 70 - 100 mg/dL 05/13/2025 8:42 AM EDT [facility] Blood Capillary blood specimen / Unknown 05/13/2025 8:36 AM EDT 05/13/2025 8:44 AM EDT us Desmond Chavarria MD LAB POINT OF CARE TE ST DOCKED DEVICE UNSOLICITED RESULTS Final Result [facility] [address] [place] [address], [place] [phone] * Respiratory virus panel molecular study (05/11/2025 6:54 PM EDT) Adenovirus Detection by PCR Not Detected Not Detected LAB MICROBIOLOGY METHOD 05/11/2025 7:53 PM EDT [facility] Influenza A PCR Not Detected Not Detected LAB MICROBIOLOGY METHOD 05/11/2025 7:53 PM EDT [facility] Influenza B PCR Not Detected Not Detected LAB MICROBIOLOGY METHOD 05/11/2025 7:53 PM EDT [facility] Coronavirus 229E Not Detected Not Detected LAB MICROBIOLOGY METHOD 05/11/2025 7:53 PM EDT [facility] Coronavirus HKU1 Not Detected Not Detected LAB MICROBIOLOGY METHOD 05/11/2025 7:53 PM EDT [facility] Coronavirus OC43 Not Detected Not Detected LAB MICROBIOLOGY METHOD 05/11/2025 7:53 PM EDT [facility] Coronavirus NL63 Not Detected Not Detected LAB MICROBIOLOGY METHOD 05/11/2025 7:53 PM EDT [facility] Parainfluenza Virus 1 Not Detected Not Detected LAB MICROBIOLOGY METHOD 05/11/2025 7:53 PM EDT [facility] Parainfluenza Virus 2 Not Detected Not Detected LAB MICROBIOLOGY METHOD 05/11/2025 7:53 PM EDT [facility] Parainfluenza Virus 3 Not Detected Not Detected LAB MICROBIOLOGY METHOD 05/11/2025 7:53 PM EDT [facility] Parainfluenza Virus 4 Not Detected Not Detected LAB MICROBIOLOGY METHOD 05/11/2025 7:53 PM EDT [facility] RSV PCR Not Detected Not Detected LAB MICROBIOLOGY METHOD 05/11/2025 7:53 PM EDT [facility] Human Metapneumovirus A and B Not Detected Not Detected LAB MICROBIOLOGY METHOD 05/11/2025 7:53 PM EDT [facility] Rhinovirus/Entero virus Not Detected Not Detected LAB MICROBIOLOGY METHOD 05/11/2025 7:53 PM EDT [facility] Bordetella pertussis Not Detected Not Detected LAB MICROBIOLOGY METHOD 05/11/2025 7:53 PM EDT [facility] Bordetella parapertussis Not Detected Not Detected LAB MICROBIOLOGY METHOD 05/11/2025 7:53 PM EDT [facility] Mycoplasma pneumo by PCR Not Detected Not Detected LAB MICROBIOLOGY METHOD 05/11/2025 7:53 PM EDT [facility] Chlamydia pneumoniae Not Detected Not Detected LAB MICROBIOLOGY METHOD 05/11/2025 7:53 PM EDT [facility] SARS COV-2 Not Detected Not Detected LAB MICROBIOLOGY METHOD 05/11/2025 7:53 PM EDT [facility] Swab Both anterior nares / Unknown Non-blood Collection / Unknown 05/11/2025 6:54 PM EDT 05/11/2025 6:59 PM EDT [facility] - 05/11/2025 7:53 PM EDT Testing was performed using the [employer] Respiratory Pathogen PCR Assay. All results must be correlated with the clinical findings. Results should not be used as the sole basis for diagnosis. False Negative results may occur from the presence of sequence variants in the region targeted by the assay or the presence of inhibitors. Results may be affected by concurrent antiviral/antimicrobial therapy or levels of organisms that are below the limit of detection. Beth FOSS LAB MICROBIOLOGY - GENERAL ORDE RABLES Final Result Performing Organization Address City/[facility]/ZIP Co de Phone Number [facility] [address] [place] [address], [place] [phone] * Lactate (05/11/2025 6:52 PM EDT) Pathologist [facility] Lactate 1.8 0.4 - 2.0 mmol/L LAB CHEMISTRY METHOD 05/11/2025 7:32 PM EDT [facility] Blood Venous blood specimen / Unknown Venipuncture / Unknown 05/11/2025 6:52 PM EDT 05/11/2025 6:59 PM EDT Beth FOSS LAB BLOOD ORDERABLES Final Resu lt Performing Organization Address [facility]/ZIP Co de Phone Number [facility] [address] [place] [address], [place] [phone] * (ABNORMAL) Blood culture pathogens molecular study (05/11/2025 6:23 PM EDT) [facility] Staphylococcus species Detected (A) Not Detected LAB MICROBIOLOGY METHOD 05/12/2025 9:14 PM EDT [facility] Blood Venous blood specimen / Unknown Venipuncture / Unknown 05/11/2025 6:23 PM EDT 05/11/2025 6:35 PM EDT David Thorne MD LAB MICROBIOLOGY - GENERAL ORDERABLES Final Result Performing Organization Address City/[facility]/ZIP Co de Phone Number [facility] [address] [place] [address], [place] [phone] * CT Chest wo Contrast (05/11/2025 5:50 PM EDT) Anatomical Region Laterality Modality Body Computed Tomogra phy 05/11/2025 6:04 PM EDT Impressions 05/11/2025 6:04 PM EDT Impression: 1. Bilateral basilar septal thickening raises the possibility of mild interstitial pulmonary edema. 2. Moderate right pleural effusion, mildly increased since prior exam. 3. Partially imaged abdominal ascites. This document has been electronically signed by: Juan Carlos Phillips MD on 05/11/2025 18:04:11 Narrative 05/11/2025 6:04 PM EDT INDICATION: Dyspnea, chronic, unclear etiology Exam: Nonenhanced CT chest with multiplanar reformats. Comparison: 11/13/2024. Findings: Lungs are free of focal consolidation. Airways are generally patent with some mild bronchial wall thickening primarily involving the lower lobes. There is mild bibasilar subpleural septal thickening, raising the possibility of mild interstitial edema. A moderate size right pleural effusion is mildly increased compared with the prior exam. No new or increasing mediastinal or hilar masses or adenopathy. Multifocal mediastinal lymph nodes which are mostly sub cm short axis dimension appear stable. No pericardial or left pleural effusion. Images below the diaphragms reveal relatively similar [id number] volume upper abdominal ascites. Multifocal pancreatic calcification suggest history of chronic pancreatitis. Osseous structures reveal no destructive osseous lesions. A central line is present, tip overlying cavoatrial junction. Procedure Note Juan Carlos Phillips MD - 05/11/2025 INDICATION: Dyspnea, chronic, unclear etiology Exam: Nonenhanced CT chest with multiplanar reformats. Comparison: 11/13/2024. Findings: Lungs are free of focal consolidation. Airways are generally patent with some mild bronchial wall thickening primarily involving the lower lobes. There is mild bibasilar subpleural septal thickening,raising the possibility of mild interstitial edema. A moderate size rightpleural effusion is mildly increased compared with the prior exam. No new or increasing mediastinal or hilar masses or adenopathy.Multifocal mediastinal lymph nodes which are mostly sub cm short axis dimension appear stable. No pericardial or left pleural effusion. Images below the diaphragms reveal relatively similar klrwi-id-mtoxxjok volume upper abdominal ascites. Multifocal pancreatic calcification suggest history of chronic pancreatitis. Osseous structures reveal no destructive osseous lesions. A central line is present, tip overlying cavoatrial junction. IMPRESSION: Impression: 1. Bilateral basilar septal thickening raises the possibility of mild interstitial pulmonary edema. 2. Moderate right pleural effusion, mildly increased since prior exam. 3. Partially imaged abdominal ascites. This document has been electronically signed by: Juan Carlos Phillips MD on 05/11/2025 18:04:11 David Thorne MD IMG CT PROCEDURES Final Res ult from Last 3 Months Insurance BLUE CROSS - [place] MEDICARE ADVANTAGE Advance Directives Documents on File Type Date Recorded Patient [employer] Application Developer Expl anation Advance Directives and Livin g Will 11/16/2024 11:09 AM PROXY * Full Code - Default (Latest Code Status on File) Date Activated Date Inactivated Comments 05/20/2025 11:50 PM 05/22/2025 3:32 PM This is orde r is used when code status has not been discussed with the patient, or code status is otherwise unknown/unconfirmed To update the patient's code status, place a code status order. Do not modify or discontinue any currently active code status orders. * Full Code - Confirmed Date Activated Date Inactivated Comments 05/11/2025 7:29 PM 05/15/2025 7:39 PM This code sta tus was ascertained in the following way: Code status discussion: discussion with patient To update the patient's code status, place a code status order. Do not modify or discontinue any currently active code status orders. * Full Code - Default Date Activated Date Inactivated Comments 05/11/2025 7:03 PM 05/11/2025 7:29 PM This is orde r is used when code status has not been discussed with the patient, or code status is otherwise unknown/unconfirmed To update the patient's code status, place a code status order. Do not modify or discontinue any currently active code status orders. * Full Code - Default Date Activated Date Inactivated Comments 05/11/2025 6:00 PM 05/11/2025 7:03 PM This is orde r is used when code status has not been discussed with the patient, or code status is otherwise unknown/unconfirmed To update the patient's code status, place a code status order. Do not modify or discontinue any currently active code status orders. * Full Code - Default Date Activated Date Inactivated Comments 11/14/2024 7:41 AM 11/15/2024 6:48 PM This is order is used when code status has not been discussed with the patient, or code status is otherwise unknown/unconfirmed To update the patient's code status, place a code status order. Do not modify or discontinue any currently active code status orders. Care Teams Striping Machine Operator Relationship Specialty Start Date End Date Jordon Betancur MD [address] [place] [address] PCP - General Internal Medicine 11/10/24
--- OUTSIDE RECORDS SUMMARY | 2025-06-02 09:26 | XMS_ITS | Clinical Summary ---
Author Organization [facility] Address [address] [place] [phone] Phone Care Team Providers Care Surgical Instruments Inspector Name Role Phone Unavailable Primary Care Provider Unavailabl e Social History Tobacco Use Types Packs/Day Years Used Date Smoking Tobacco: Never Assessed Education Answer Date Recorded Are you interested in more education? Not on fer e 03/10/2023 Are you concerned about learning? Not on file 03/10/2023 No 03/10/2023 No 03/10/2023 Digital Access Answer Date Recorded No 04/10/2023 No 04/10/2023 Reliable internet access at home? Not on file 04/10/2023 Device with a working camera? Not on file Sex and Gender Information Value Date Recorded Sex Assigned at Not on file Legal Sex Male 9:28 AM EST Gender Identity Not on file Sexual Orientation Not on file Plan of Treatment Not on file Medical Devices Not on file Additional Source Comments The information contained in this document represents components of the legal health record. It is not the complete legal health record.[facility]
--- OUTSIDE RECORDS SUMMARY | 2025-06-02 09:26 | XMS_ITS | Clinical Summary ---
Author Organization [facility] Address [address] [place] [address] Care Team Providers Care Plant Culture Manager Name Role Phone Desmond Lowery NP Primary Care Provider [phone] Source Comments PLEASE NOTE, if this patient is a minor, it may be UNLAWFUL to discuss sensitive information that is contained in these records (such as FAMILY PLANNING, MENTAL HEALTH or SUBSTANCE ABUSE) with the minor patient's parent or other person without the patient's specific authorization.[facility] Allergies No known active allergies Medications fluticasone (FLONASE) 50 mcg/actuation nasal spray 8 Active pravastatin (PRAVACHOL) 40 mg tablet Take 1 Tab by mouth once daily 30 Tab 3 8 Active pioglitazone (ACTOS) 30 mg tablet Take 1 Tab by mouth once daily 30 Tab 3 8 Active metFORMIN (GLUCOPHAGE) 1,000 mg tablet Take 1 Tab by mouth 2 (two) times daily with a meal 60 Tab 3 8 Active fish oil-dha-epa 1,200-144-216 mg per capsule Take 1 Cap by mouth once daily 30 Cap 3 8 Active lisinopril (PRINIVIL,ZESTRIL ) 40 mg tabletIndications :Essential hypertension Take 1 Tab by mouth once daily 30 Tab 3 9 Active glyBURIDE (DIABETA) 5 mg tabletIndications :Type 2 diabetes mellitus without complication, without long-term current use of insulin ([facility]) Take 2 Tabs by mouth once daily with breakfast 60 Tab 3 9 Active Active Problems Problem Noted Date Diagnosed Date Microalbuminuria 09/20/2018 Essential hypertension 08/02/2018 Mixed hyperlipidemia 08/02/2018 Type 2 diabetes mellitus ([facility]) 018 Kidney stones 08/02/2018 Foraminal stenosis of cervical region 08/02/2018 Overview (08/02/2018): Seen on MRI done on 09/07/14 - moderate to severe right foraminal stenosis at C7-T1, no spinal stenosis. Immunizations Immunization Administration Dates Next Due PNEUMOCOCCAL POLYSACCHARIDE PPV23 (Pneumovax 23) 09/19/2018 TDAP 09/19/2018 Social History Tobacco Use Types Packs/Day Years Used Date Smoking Tobacco: Never Smokeless Tobacco: Never Alcohol Use Standard Drinks/Week Comments No 0 (1 standard drink = 0.6 oz pur e alcohol) Social Connections Answer Date Recorded Social Connections and Isolation 0 07/07/2019 Financial Resource Strain Answer Date R ecorded Financial Resource Strain 0 2018 Stress Answer Date Recorded Stress 0 07/07/2019 Physical Activity Answer Date Recorded Physical Activity 0 07/07/2019 Food Insecurity Answer Date Recorded Food 0 07/07/2019 Transportation Needs Answer Date Record ed Transportation 0 07/07/2019 Housing Stability Answer Date Recorded Housing 0 07/07/2019 Safety and Environment Answer Date Shaun rded Safety 0 07/07/2019 Utilities Answer Date Recorded Utilities 0 07/07/2019 Employment Answer Date Recorded Employment 0 07/07/2019 Sex and Gender Information Value Date Recorded Sex Assigned at Male 09/19/2018 12:52 PM PST Legal Sex Male 8:44 AM PDT Gender Identity Male 09/19/2018 12:52 PM PST Sexual Orientation Straight 09/19/2018 12 :52 PM PST Last Filed Vital Signs Vital Sign Reading Time Taken Comments Blood Pressure 180/92 02/13/2019 1:12 PM EDT Pulse 98 02/13/2019 1:12 PM EDT Temperature 36.8 C (98.3 F) 02/13/2019 1:12 PM EDT Respiratory Rate 16 02/13/2019 1:12 PM EDT Oxygen Saturation - - Inhaled Oxygen Concentration - - Weight 93.9 kg (207 lb) 02/13/2019 1:12 PM EDT Height 175.3 cm (5' 9 ) 09/19/2018 1:21 PM EST Body Mass Index 30.57 09/19/2018 1:21 PM EST Plan of Treatment Not on file Insurance [email or web address] Care Teams Plant Culture Manager Relationship Specialty Start Date End Date Desmond Lowery NP [address] [place] [id number] PCP - General [employer] Gerontology 04/10/19
--- OUTSIDE RECORDS SUMMARY | 2025-06-02 09:26 | XMS_ITS | Clinical Summary ---
Author Organization [facility] Address [address] [place] [address] Phone Care Team Providers Care Transplant Nurse Practitioner Name Role Phone Jordon Betancur MD Primary Care Provider [phone] Allergies No known active allergies Medications glyBURIDE (DIABETA) 5 MG tablet Take 5 mg by mouth 2 (two) times a day Take 1 tab qam and 1/2 qpm 11/23/19 21 Active pioglitazone (ACTOS) 30 MG tablet Take 1 tablet by mouth 1 (one) time each day 10/09/20 18 Active pravastatin (PRAVACHOL) 40 MG tablet Take 1 tablet by mouth 1 (one) time each day 10/09/20 18 Active calcitriol (ROCALTROL) 0.25 MCG capsule TAKE 1 TABLET BY MOUTH AT 9 AM ON SUNDAY, SUNDAY, AND SUNDAY EVERY WEEK 06/21/20 21 Active D-1000 Extra Strength 25 MCG (1000 UT) tablet Take 1,000 Units by mouth 1 (one) time each day 07/11/20 21 Active sodium polystyrene sulfonate (KAYEXALATE) powder MIX AND DRINK 1 BOTTLE DAILY FOR 1 WEEK 06/28/20 21 Active methocarbamol (ROBAXIN) 750 MG tablet 07/18/20 21 Active methylPREDNISol one (MEDROL DOSPAK) 4 MG tablet 07/18/20 21 Active sodium bicarbonate 650 MG tablet 08/22/20 21 Active omeprazole (PriLOSEC) [address] capsule Take 20 mg by mouth 1 (one) time each day Do not crush or chew. Active hydrALAZINE 100 MG tablet Take 1 tablet (100 mg total) by mouth in the morning and 1 tablet (100 mg total) in the evening. 60 tablet 11 05/02/20 23 Active losartan (Cozaar) 100 MG tablet Take 1 tablet (100 mg total) by mouth 1 (one) time each day 30 tablet 11 05/21/20 23 Active tamsulosin (FLOMAX) 0.4 MG 24 hr capsule TAKE 1 CAPSULE BY MOUTH EVERY NIGHT. 30 capsule 11 06/13/20 24 Active labetalol (NORMODYNE) 200 MG tablet TAKE 1 TABLET BY MOUTH TWICE A DAY 180 tablet 1 05/26/20 25 Active labetalol (NORMODYNE) 200 MG tablet Take 1 tablet (200 mg total) by mouth in the morning and 1 tablet (200 mg total) in the evening. 60 tablet 2 06/27/20 23 025 Discontinued Active Problems Problem Noted Date Diagnosed Date Hypertensive chronic kidney disease with stage 5 chronic kidney disease or end stage renal disease 09/02/2021 Chronic hyperkalemia 08/30/2021 Chronic kidney disease stage 4 08/30/2021 Disorder of musculoskeletal system 08/30/2021 Proteinuria 08/30/2021 Renal disorder due to type 2 diabetes mellitus 1 Type 2 diabetes mellitus without complication Essential hypertension 08/02/2018 Mixed hyperlipidemia 08/02/2018 Renal stone 08/02/2018 Stenosis of intervertebral foramina 08/02/2018 Overview (08/30/2021): Seen on MRI done on 09/07/14 - moderate to severe right foraminal stenosis at C7-T1, no spinal stenosis. Encounters Date Type Department Care Team Description 05/26/2025 Treatment [facility] [address] [phone] Alexander Avalos MD End stage renal disease; Dependence on renal dialysis 05/26/2025 Refill [facility] [address] [phone] Alexander Avalos MD 05/19/2025 TCM in Dialysis Clinic [facility] [address] [phone] Alexander Avalos MD 05/19/2025 Treatment [facility] [address] [phone] Alexander Avalos MD End stage renal disease; Dependence on renal dialysis 05/07/2025 Orders Only [facility] [address] [phone] Alexander Avalos MD 04/30/2025 Treatment [facility] [address] [phone] Alexander Avalos MD End stage renal disease; Dependence on renal dialysis 04/28/2025 Treatment [facility] [address] [phone] Alexander Avalos MD End stage renal disease; Dependence on renal dialysis 04/21/2025 Treatment [facility] [address] [phone] Alexander Avalos MD End stage renal disease; Dependence on renal dialysis 04/14/2025 Treatment [facility] [address] [phone] Alexander Avalos MD End stage renal disease; Dependence on renal dialysis 04/07/2025 Treatment [facility] [address] [phone] Alexander Avalos MD End stage renal disease; Dependence on renal dialysis 03/31/2025 Treatment [facility] [address] [phone] Alexander Avalos MD End stage renal disease; Dependence on renal dialysis 03/17/2025 Treatment [facility] [address] [phone] Alexander Avalos MD End stage renal disease; Dependence on renal dialysis 03/12/2025 Treatment [facility] [address] [phone] Alexander Avalos MD End stage renal disease; Dependence on renal dialysis 03/03/2025 Treatment [facility] [address] [phone] Alexander Avalos MD End stage renal disease; Dependence on renal dialysis from Last 3 Months Immunizations Immunization Administration Dates Next Due Pneumococcal Polysaccharide 09/19/2018 Tdap 09/19/2018 Social History Tobacco Use Types Packs/Day Years Used Date Smoking Tobacco: Never Smokeless Tobacco: Never Alcohol Use Standard Drinks/Week Comments No 0 (1 standard drink = 0.6 oz pur e alcohol) Sex and Gender Information Value Date Recorded Sex Assigned at Not on file Legal Sex Male 4:53 PM EST Gender Identity Not on file Sexual Orientation Not on file Last Filed Vital Signs Vital Sign Reading Time Taken Comments Blood Pressure 140/60 09/02/2021 2:43 PM EDT Pulse 74 09/02/2021 2:43 PM EDT Temperature - - Respiratory Rate - - Oxygen Saturation 97% 09/02/2021 2:43 PM EDT Inhaled Oxygen Concentration - - Weight 90.1 kg (198 lb 9.6 oz) 09/02/2021 2:43 P M EDT Height 175.3 cm (5' 9 ) 01/07/2021 4:02 PM EST Body Mass Index 29.33 01/07/2021 4:02 PM EST Plan of Treatment Health Maintenance Due Date Last Done Comments Hepatitis B Vaccine (1 of 5 - Risk Dialysis 4-dose series) 1974 Colorectal Cancer Screening: Annual FOBT 2003 Colorectal Cancer Screening: Colonoscopy 2003 Colorectal Cancer Screening: Sigmoidoscopy 2003 Pneumococcal Vaccine: 50+ Ye ars (2 of 2 - PCV) 09/19/2019 09/19/2018 Diabetes: Ophthalmology Exam 12/10/2020 Diabetes: Pedal Pulse Checked 12/10/2020 Diabetes: Sensory Foot Exam 12/10/2020 Diabetes: Visual Foot Exam 12/10/2020 Influenza Vaccine (#1) 2025 Diabetes: Hemoglobin A1C 08/26/2025 025, 02/12/2025, 11/15/2024, Additional history exists Pneumococcal Vaccine: Peds ( 0 to 5 Years) and At-Risk Patients (6 to 49 Years) Discontinued 09/19/2018 Procedures Procedure Name Priority Date/Time Associated Diagnosis Comments FERRITIN Routine 05/26/2025 3:00 AM EDT CONFIRMATION TEST HCV Routine 05/26/2025 3:00 AM EDT HEPATITIS C ABS W/REFLEX RNA DETECTR Routine 05/26/2025 3:00 AM EDT HEPATITIS B SURFACE ANTIGEN W/REFL CONFIRM Routine 05/26/2025 3:00 AM EDT TRANSFERRIN SATURATION Routine 3:00 AM EDT PROTEIN, TOTAL, SERUM Routine 05/26/2025 3:00 AM EDT MAGNESIUM Routine 05/26/2025 3:00 AM EDT LIPID PANEL Routine 05/26/2025 3:00 AM EDT ELECTROLYTE PANEL Routine 05/26/2025 3:0 0 AM EDT LACTATE DEHYDROGENASE Routine 05/26/2025 3:00 AM EDT GLUCOSE, RANDOM Routine 05/26/2025 3:00 AM EDT LIH (HC) Routine 05/26/2025 3:00 AM EDT CREATININE, SERUM Routine 05/26/2025 3:0 0 AM EDT BILIRUBIN, TOTAL Routine 05/26/2025 3:00 AM EDT ALT Routine 05/26/2025 3:00 AM EDT AST Routine 05/26/2025 3:00 AM EDT BUN/CREATININE RATIO Routine 05/26/2025 3:00 AM EDT ALKALINE PHOSPHATASE Routine 05/26/2025 3:00 AM EDT CALCIUM PHOSPHORUS PRODUCT, ADJUSTED (HC) Routine 05/26/2025 3:00 AM EDT PTH, INTACT Routine 05/26/2025 3:00 AM EDT HEMOGLOBIN A1C Routine 05/26/2025 3:00 AM EDT CBC AND DIFFERENTIAL Routine 05/26/2025 3:00 AM EDT KT/V NATURAL LOG, URR (HC) Routine 05/26/2025 3:00 AM EDT HEMOGLOBIN Routine 05/07/2025 3:00 AM EDT HEMOGLOBIN AND HEMATOCRIT, BLOOD Routine 04/30/2025 3:00 AM EDT FERRITIN Routine 04/18/2025 3:00 AM EDT HEPATITIS B SURFACE ANTIGEN W/REFL CONFIRM Routine 04/18/2025 3:00 AM EDT TRANSFERRIN SATURATION Routine 3:00 AM EDT PROTEIN, TOTAL, SERUM Routine 04/18/2025 3:00 AM EDT LIH (HC) Routine 04/18/2025 3:00 AM EDT MAGNESIUM Routine 04/18/2025 3:00 AM EDT ELECTROLYTE PANEL Routine 04/18/2025 3:0 0 AM EDT CREATININE, SERUM Routine 04/18/2025 3:0 0 AM EDT LACTATE DEHYDROGENASE Routine 04/18/2025 3:00 AM EDT GLUCOSE, RANDOM Routine 04/18/2025 3:00 AM EDT BILIRUBIN, TOTAL Routine 04/18/2025 3:00 AM EDT BUN/CREATININE RATIO Routine 04/18/2025 3:00 AM EDT AST Routine 04/18/2025 3:00 AM EDT ALKALINE PHOSPHATASE Routine 04/18/2025 3:00 AM EDT ALT Routine 04/18/2025 3:00 AM EDT CALCIUM PHOSPHORUS PRODUCT, ADJUSTED (HC) Routine 04/18/2025 3:00 AM EDT KT/V NATURAL LOG, URR (HC) Routine 04/18/2025 3:00 AM EDT CBC AND DIFFERENTIAL Routine 04/18/2025 3:00 AM EDT COLLECTION DATE (HC) Routine 04/18/2025 3:00 AM EDT HEMOGLOBIN Routine 04/09/2025 3:00 AM EDT HEMOGLOBIN AND HEMATOCRIT, BLOOD Routine 04/02/2025 3:00 AM EDT HEMOGLOBIN Routine 03/26/2025 3:00 AM EDT LIH (HC) Routine 03/24/2025 3:00 AM EDT KT/V NATURAL LOG, URR (HC) Routine 03/24/2025 3:00 AM EDT FERRITIN Routine 03/19/2025 3:00 AM EDT HEPATITIS B SURFACE ANTIGEN W/REFL CONFIRM Routine 03/19/2025 3:00 AM EDT TRANSFERRIN SATURATION Routine 3:00 AM EDT PROTEIN, TOTAL, SERUM Routine 03/19/2025 3:00 AM EDT MAGNESIUM Routine 03/19/2025 3:00 AM EDT ELECTROLYTE PANEL Routine 03/19/2025 3:0 0 AM EDT LIH (HC) Routine 03/19/2025 3:00 AM EDT LACTATE DEHYDROGENASE Routine 03/19/2025 3:00 AM EDT CREATININE, SERUM Routine 03/19/2025 3:0 0 AM EDT GLUCOSE, RANDOM Routine 03/19/2025 3:00 AM EDT BUN/CREATININE RATIO Routine 03/19/2025 3:00 AM EDT BILIRUBIN, TOTAL Routine 03/19/2025 3:00 AM EDT AST Routine 03/19/2025 3:00 AM EDT ALT Routine 03/19/2025 3:00 AM EDT ALKALINE PHOSPHATASE Routine 03/19/2025 3:00 AM EDT CALCIUM PHOSPHORUS PRODUCT, ADJUSTED (HC) Routine 03/19/2025 3:00 AM EDT PTH, INTACT Routine 03/19/2025 3:00 AM EDT KT/V NATURAL LOG, URR (HC) Routine 03/19/2025 3:00 AM EDT CBC AND DIFFERENTIAL Routine 03/19/2025 3:00 AM EDT HEMOGLOBIN Routine 03/12/2025 3:00 AM EDT HEMOGLOBIN Routine 03/05/2025 3:00 AM EDT from Last 3 Months Results * Confirmation Test HCV (05/26/2025 3:00 AM EDT) Hep C Ab Confirmation Not needed [facility] 05/26/2025 3:00 AM EDT 05/27/2025 1:10 PM EDT us Alexander Avalos MD LAB BLOOD ORDERABLES Final Resul t Performing Organization Address [facility] Co de Phone Number [facility] [address] [place] [address] * LIH (05/26/2025 3:00 AM EDT) Only the most recent of4 resultswithin the time period is included. Lipemia Normal Normal [facility] Icterus Normal Normal [facility] Hemolysis Normal Normal [facility] 05/26/2025 3:00 AM EDT 05/27/2025 12:40 PM EDT us Alexander Avalos MD LAB [id number] ICITED RESULTS Final Result Performing Organization Address [facility] de Phone Number [facility] [address] [place] [address] * (ABNORMAL) Kt/V Natural Log, URR (05/26/2025 3:00 AM EDT) Only the most recent of4 resultswithin the time period is included. Treatment Time 227 min [facility] Pre-Weight, lb 76.5 kg [facility] Post-Weight, lb 74.8 kg [facility] Ultrafiltration Rate 6 <=13 mL/kg/hr [facility] Comment: Recommend achieving Ultrafiltration Rate (UFR) <=10 mL/kg/hr References: Jasmin AKBAR et al. Kidney Int. 2010; 79(2):250-257 BUN 54(H) 7 - 25 mg/dL [facility] BUN Post Dialysis 16 7 - 25 mg/dL [facility] UREA REDUCTION RATIO (%) 70 >=65 % [facility] Kt/V Natural Log 1.39 >=1.2 [facility] 05/26/2025 3:00 AM EDT 05/27/2025 12:40 PM EDT us Alexander Avalos MD LAB [id number] ICITED RESULTS Final Result Performing Organization Address [facility] de Phone Number [facility] [address] [place] [address] * (ABNORMAL) Calcium Phosphorus Product, Adjusted (05/26/2025 3:00 AM EDT) Only the most recent of3 resultswithin the time period is included. Albumin 3.5(L) 3.6 - 5.4 g/dL [facility] Calcium 8.6 8.6 - 10.3 mg/dL [facility] Phosphorus, Serum 8.9(H) 2.5 - 5.0 mg/dL [facility] Ca*PO4 76.5(A) <55.0 mg2/dL2 [facility] Calcium, Adjusted Total 9.0 8.6 - 10.3 mg/dL [facility] CA*PO4 CORRCTD 80.1(A) <55.0 mg2/dL2 [facility] 05/26/2025 3:00 AM EDT 05/27/2025 12:40 PM EDT us Alexander Avalos MD LAB [id number] ICITED RESULTS Final Result Performing Organization Address [facility] de Phone Number [facility] [address] [place] [address] * HEPATITIS C ABS W/REFLEX RNA DETECTR (05/26/2025 3:00 AM EDT) Hep C Virus Ab Non-Reacti ve Non-Reacti ve [facility] 05/26/2025 3:00 AM EDT 05/27/2025 12:40 PM EDT us Alexander Avalos MD LAB [id number] ICITED RESULTS Final Result Performing Organization Address [facility] Co de Phone Number [facility] [address] [place] [address] * Hepatitis B Surface Ag w/Reflex Confirmation (05/26/2025 3:00 AM EDT) Only the most recent of3 resultswithin the time period is included. Hep B Surface Antigen Negative Negative [facility] 05/26/2025 3:00 AM EDT 05/27/2025 12:40 PM EDT us Alexander Avalos MD LAB BLOOD ORDERABLES Final Resul t Performing Organization Address [facility] Co de Phone Number [facility] [address] [place] [address] * BUN/CREATININE RATIO (05/26/2025 3:00 AM EDT) Only the most recent of3 resultswithin the time period is included. BUN/Creatinine Ratio 5.7 <=23.0 [facility] 05/26/2025 3:00 AM EDT 05/27/2025 12:40 PM EDT us Alexander Avalos MD LAB [id number] ICITED RESULTS Final Result Performing Organization Address [facility] Co de Phone Number [facility] [address] [place] [address] * (ABNORMAL) TSAT (05/26/2025 3:00 AM EDT) Only the most recent of3 resultswithin the time period is included. Iron 98 65 - 175 ug/dL [facility] Transferrin 126(L) 215 - 365 mg/dL [facility] TIBC 176(L) 211 - 406 ug/dL [facility] Iron Saturation (TSat) 56(H) 22 - 52 % [facility] 05/26/2025 3:00 AM EDT 05/27/2025 12:40 PM EDT us Alexander Avalos MD LAB BLOOD ORDERABLES Final Resul t Performing Organization Address [facility] Co de Phone Number [facility] [address] [place] [address] * (ABNORMAL) CBC and Differential (05/26/2025 3:00 AM EDT) Only the most recent of3 resultswithin the time period is included. Pathologist [facility] DIFFERENTIAL MANUAL, 2 Not Indicated [facility] White Blood Cells 9.4(H) 4.2 - 9.1 K/uL [facility] RBC 3.69(L) 4.63 - 6.08 M/uL [facility] Hgb 11.4(L) 13.7 - 17.5 g/dL [facility] Hemoglobin x 3 34.2(L) 41.1 - 52.5 g/dL [facility] Hematocrit 36.2(L) 40.1 - 51.0 % [facility] MCV 98.1(H) 79.0 - 92.2 fL [facility] MCH 30.9 25.7 - 32.2 pg [facility] MCHC 31.5(L) 32.3 - 36.5 g/dL [facility] RDW 15.4(H) 11.6 - 14.4 % [facility] Platelets 70(L) 163 - 337 K/uL [facility] Neutrophils Relative 80.9(H) 34.0 - 67.9 % [facility] Lymphocytes Relative 9.7(L) 21.8 - 53.1 % [facility] Monocytes 6.3 5.3 - 12.2 % [facility] Eosinophils Relative 2.0 0.8 - 7.0 % [facility] Basophils Relative 0.5 0.2 - 1.2 % [facility] Immature Granulocytes 0.6 0.0 - 1.0 % [facility] 05/26/2025 3:00 AM EDT 05/27/2025 1:10 PM EDT us Aleaxnder Avalos MD LAB BLOOD ORDERABLES Final Resul t [facility] [address] [place] [address] * ALT (05/26/2025 3:00 AM EDT) Only the most recent of3 resultswithin the time period is included. [facility] ALT (SGPT) 11 10 - 49 U/L [facility] 05/26/2025 3:00 AM EDT 05/27/2025 12:40 PM EDT us Alexander Avalos MD LAB BLOOD ORDERABLES Final Resul t Performing Organization Address [facility] Co de Phone Number [facility] [address] [place] [address] * AST (05/26/2025 3:00 AM EDT) Only the most recent of3 resultswithin the time period is included. AST (SGOT) <8 <34 U/L [facility] 05/26/2025 3:00 AM EDT 05/27/2025 12:40 PM EDT us Alexander Avalos MD LAB BLOOD ORDERABLES Final Resul t Performing Organization Address [facility] Phone Number [facility] [address] [place] [address] * Protein, total (05/26/2025 3:00 AM EDT) Only the most recent of3 resultswithin the time period is included. Total Protein 7.1 6.4 - 8.9 g/dL [facility] 05/26/2025 3:00 AM EDT 05/27/2025 12:40 PM EDT us Alexander Avalos MD LAB BLOOD ORDERABLES Final Resul t Performing Organization Address [facility] de Phone Number [facility] [address] [place] [address] * Alkaline phosphatase (05/26/2025 3:00 AM EDT) Only the most recent of3 resultswithin the time period is included. Alkaline Phosphatase 80 46 - 116 U/L [facility] 05/26/2025 3:00 AM EDT 05/27/2025 12:40 PM EDT us Alexander Avalos MD LAB BLOOD ORDERABLES Final Resul t Performing Organization Address [facility] Co de Phone Number [facility] [address] [place] [address] * PTH, Intact (05/26/2025 3:00 AM EDT) Only the most recent of2 resultswithin the time period is included. PTH, Intact 531 160 - 721 pg/mL [facility] Comment: Suggested (KDIGO) ESRD maintenance range is two to nine times the upper normal limit (80.1 pg/mL) for the laboratory. 05/26/2025 3:00 AM EDT 05/27/2025 12:40 PM EDT us Alexander Avalos MD LAB BLOOD ORDERABLES Final Resul t Performing Organization Address [facility] Co de Phone Number [facility] [address] [place] [address] * Magnesium (05/26/2025 3:00 AM EDT) Only the most recent of3 resultswithin the time period is included. Magnesium 2.7 1.9 - 2.7 mg/dL [facility] 05/26/2025 3:00 AM EDT 05/27/2025 12:40 PM EDT us Alexander Avalos MD LAB BLOOD ORDERABLES Final Resul t Performing Organization Address [facility] de Phone Number [facility] [address] [place] [address] * (ABNORMAL) Lactate dehydrogenase (05/26/2025 3:00 AM EDT) Only the most recent of3 resultswithin the time period is included. LDH 288(H) 120 - 246 U/L [facility] 05/26/2025 3:00 AM EDT 05/27/2025 12:40 PM EDT us Alexander Avalos MD LAB BLOOD ORDERABLES Final Resul t Performing Organization Address [facility] de Phone Number [facility] [address] [place] [address] * (ABNORMAL) Hemoglobin A1c (05/26/2025 3:00 AM EDT) Hemoglobin A1C 5.7(H) <5.7 % [facility] Comment: Methodology: Enzymatic Normal: <5.7% Prediabetes: 5.7-6.4% Diabetes: >6.4% Diabetic Glucose Control Evaluation: Therapeutic action suggested at >8.0% ADA recommends a glycemic goal of <7.0% 05/26/2025 3:00 AM EDT 05/27/2025 1:10 PM EDT us Alexander Avalos MD LAB BLOOD ORDERABLES Final Resul t Performing Organization Address [facility] de Phone Number [facility] [address] [place] [address] * (ABNORMAL) Glucose, random (05/26/2025 3:00 AM EDT) Only the most recent of3 resultswithin the time period is included. Glucose 161(H) 70 - 99 mg/dL [facility] Comment: ADA guidelines outline the following fasting glucose ranges: Normal: <100 Prediabetes: 100-125 Diabetes: >125 05/26/2025 3:00 AM EDT 05/27/2025 12:40 PM EDT us Alexander Avalos MD LAB BLOOD ORDERABLES Final Resul t Performing Organization Address [facility] de Phone Number [facility] [address] [place] [address] * (ABNORMAL) Ferritin (05/26/2025 3:00 AM EDT) Only the most recent of3 resultswithin the time period is included. Ferritin 1,522(H) 22 - 322 ng/mL [facility] 05/26/2025 3:00 AM EDT 05/27/2025 12:40 PM EDT us Alexander Avalos MD LAB BLOOD ORDERABLES Final Resul t Performing Organization Address [facility] de Phone Number [facility] [address] [place] [address] * (ABNORMAL) Creatinine, serum (05/26/2025 3:00 AM EDT) Only the most recent of3 resultswithin the time period is included. Creatinine 9.52(H) 0.70 - 1.30 mg/dL [facility] 05/26/2025 3:00 AM EDT 05/27/2025 12:40 PM EDT us Alexander Avalos MD LAB BLOOD ORDERABLES Final Resul t Performing Organization Address [facility] Co de Phone Number [facility] [address] [place] [address] * Bilirubin, total (05/26/2025 3:00 AM EDT) Only the most recent of3 resultswithin the time period is included. Total Bilirubin 0.7 0.3 - 1.2 mg/dL [facility] 05/26/2025 3:00 AM EDT 05/27/2025 12:40 PM EDT us Alexander Avalos MD LAB BLOOD ORDERABLES Final Resul t Performing Organization Address [facility] Co de Phone Number [facility] [address] [address] * (ABNORMAL) Lipid panel (05/26/2025 3:00 AM EDT) Cholesterol 65 mg/dL [facility] Comment: Optimal: <200 Borderline: 200-239 High Risk: >239 Triglycerides 71 mg/dL [facility] Comment: Optimal: <150 Borderline: 150-200 High Risk: >200 HDL 22(L) mg/dL [facility] Comment: Optimal: >59 Borderline: 40-59 High Risk: <40 LDL-Calc 29 mg/dL [facility] Comment: Optimal: <100 Borderline: 100-159 High Risk: >159 VLDL Cholesterol Noe 14 mg/dL [facility] Comment: Optimal: <30 Borderline: 30-40 High Risk: >40 Chol/HDL Ratio 3.0 [facility] Comment: Optimal: <3.3 High Risk: >6.2 05/26/2025 3:00 AM EDT 05/27/2025 12:40 PM EDT us Alexander Avalos MD LAB BLOOD ORDERABLES Final Resul t Performing Organization Address [facility] Co de Phone Number [facility] [address] [place] [address] * (ABNORMAL) Electrolyte panel (05/26/2025 3:00 AM EDT) Only the most recent of3 resultswithin the time period is included. Sodium 137 136 - 145 mEq/L [facility] Potassium 5.3(H) 3.4 - 5.0 mEq/L [facility] Chloride 97(L) 98 - 107 mEq/L [facility] Bicarbonate (CO2) 22 21 - 31 mEq/L [facility] Anion Gap 18(H) 3 - 14 mEq/L [facility] 05/26/2025 3:00 AM EDT 05/27/2025 12:40 PM EDT us Alexander Avalos MD LAB BLOOD ORDERABLES Final Resul t Performing Organization Address [facility] de Phone Number [facility] [address] [place] [address] * (ABNORMAL) Hemoglobin (05/07/2025 3:00 AM EDT) Only the most recent of5 resultswithin the time period is included. Hgb 9.5(L) 13.7 - 17.5 g/dL [facility] Hemoglobin x 3 28.5(L) 41.1 - 52.5 g/dL [facility] 05/07/2025 3:00 AM EDT 05/08/2025 12:27 PM EDT us Alexander Avalos MD LAB BLOOD ORDERABLES Final Resul t Performing Organization Address [facility] Co de Phone Number [facility] [address] [place] [address] * (ABNORMAL) Hemoglobin and hematocrit (04/30/2025 3:00 AM EDT) Only the most recent of2 resultswithin the time period is included. Hgb 9.0(L) 13.7 - 17.5 g/dL [facility] Hematocrit 28.1(L) 40.1 - 51.0 % [facility] Hemoglobin x 3 27.0(L) 41.1 - 52.5 g/dL [facility] 04/30/2025 3:00 AM EDT 05/01/2025 12:40 PM EDT us Alexander Avalos MD LAB BLOOD ORDERABLES Final Resul t Performing Organization Address [facility] Co de Phone Number [facility] [address] [place] [address] * Collection Date (04/18/2025 3:00 AM EDT) Collection Date See Comment [facility] Comment: Patient sample received may exceed specimen stability, based on the collection date electronically provided. When reviewing patient results, verify collection information and consider specimen stability before acting on any critical or panic results. 04/18/2025 3:00 AM EDT Alexander Avalos MD LAB [id number] ICITED RESULTS Final Result Performing Organization Address [facility] Co de Phone Number [facility] [address] [place] [address] from Last 3 Months Insurance [facility] Care Teams Transplant Nurse Practitioner Relationship Specialty Start Date End Date Jordon Betancur MD [address] [place] [id number] PCP - General Internal Medicine 01/07/21
--- NOTE | 2025-06-02 09:27 | A.OFFVIS_ITS ---
Vital Signs 06/02/25 09:29 Height 5 ft 9 in Weight 169 lb 12.095 oz BMI 25.1 BP 134/50 L Blood Pressure Location Lt brachial Position Sitting Pulse 82 Pulse Source Pulse Oximeter Pulse Oximetry (%) 99 Oxygen Delivery Method Room Air Intake Visit Reasons: Preop/pulmonary edema Allergies No Known Allergies (No Known Allergies*) Allergy (Verified 06/02/25 09:31) HPI Comments Details: The patient is here for pulmonary evaluation. The patient is a 69-year-old gentleman presented for an evaluation of cough and also for preoperative evaluation. Per the patient has a history of end-stage renal disease and dialysis via [facility] and recently had been admitted to [facility] with acute respiratory failure secondary to RSV. During the hospitalization the patient did have a CT scan demonstrating moderate-sized pleural effusion on the right side along with ascites. 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 The patient does complain of a cough. He was found to have an abdominal l hernia believe and also an inguinal hernia it appears that he is going to need those repaired. Although, with a significant coughing the family is concerned that he is going to not heal correctly. Sometimes the coughing spells can be significant to the point he can vomit sometimes near-syncope. He states that he coughs usually if he is drinking something cold sometimes he may be a choking component. The patient does not have any inhalers. Sometimes his coughing is worse at nighttime when he lays flat. We did talk about the reflux diet and is also sleeping elevated. Will request a barium swallow. But for now it appears the patient may have some micro aspirations. We did go for brief walking oximetry in the office and the patient has pulse ox was maintain 100% throughout her brief ambulation which is reassuring. From a pulmonary standpoint the patient may able to proceed with surgery anesthesia. The patient does carry some [id number] risk for perioperative pulmonary complications due to his other comorbidities and these include, atelectasis, pneumonia, hypoxia and prolonged mechanical ventilation. At this moment the patient may be able to proceed with surgery as he is medically optimized. We are going to start him on a rescue inhaler and also provide him with cough medication for him to use. But more importantly we talked about swallowing techniques to minimize micro aspirations and also sleeping elevated to minimize risks of microaspiration while sleeping. The patient will undergo pulmonary function studies a barium swallow and he will follow-up in the coming months. [facility] Medical History (Updated 06/02/25 @ 12:46 by Samuel Patterson MD) Dyspnea Pleural effusion Chronic cough Social History (Updated 06/02/25 @ 09:31 by Monica Menard CMA) Patient Tobacco Use Status: Never used Tobacco Review of Systems Const Reports fatigue ENT Reports dizziness Card Denies chest pain and Reports dyspnea on exertion Resp Reports cough and Reports dyspnea on exertion GI Reports dyspepsia and Reports heartburn Musc Reports abnormal gait Skin/Breast Denies erythema Neuro Reports abnormal gait and Reports dizziness Endo Reports fatigue Ari/Lymph Reports no additional complaints Physical Exam Vital Signs: Last Vital Signs Pulse 82 06/02/25 09:29 BP 134/50 L 06/02/25 09:29 Pulse Ox 99 06/02/25 09:29 Oxygen Delivery Method Room Air 06/02/25 09:29 BMI result Body Mass Index 25.1 Const General: comfortable HEENT Head: Yes normocephalic Neck Neck: Yes supple Chest Chest palpation & inspection: normal inspection of the chest Cardio Heart sounds: S1 normal heart sound present and S2 normal heart sound present GI Palpation (GI): Soft to palpation Skin General skin exam: no rashes or lesions noted Extrem General: Yes no clubbing, cyanosis or edema Assessment & Plan Assessment & Plan (1) Chronic cough: Code(s): R05.3 - Chronic cough Category: Medical (2) Pre-op chest exam: Code(s): Z01.811 - Encounter for preprocedural respiratory examination Category: Medical (3) Pleural effusion: Code(s): J90 - Pleural effusion, not elsewhere classified Category: Medical (4) Dyspnea: Code(s): R06.00 - Dyspnea, unspecified Category: Medical Qualifiers: Dyspnea type: dyspnea on exertion Qualified Code(s): R06.09 - Other forms of dyspnea Plan Start Benzonates as needed for cough Xopenex as needed PFTs Barium swallow may proceed with surgery F/U 2-3 months Orders: Orders PFT pulmonary function test Today R05.3 - Chronic cough [place] barium swallow Today K21.9 - Gastro-esophageal reflux disease without esophagitis Medications: New levalbuterol tartrate 45 mcg/actuation (Xopenex HFA) 2 puffs inhalation Q6H PRN 15 grams 11RF shortness of breath or wheezing 30 days J45.909 - Unspecified asthma, uncomplicated benzonatate 200 mg PO BID PRN 30 caps 6RF cough 30 days Coding Level of Care Code New Pt Level 4 (30935) Diagnoses Chronic cough R05.3 Pre-op chest exam Z01.811 Pleural effusion J90 Dyspnea on exertion R06.09 Dyspnea type: dyspnea on exertion Time Spent (min) 40
[2025-06-02 09:29] VITALS: BP 134/50; PULSE 82; O2SAT 99; BMI 25.1
== END 2025-06-02 10:11 | disposition home or self-care (01) ==
LOC: HO.HPS 08:59
PROVIDERS: PCP Internal Medicine; Visit Provider Hospitalist
DX: R05.3 Chronic cough (principal); Z01.811 Encounter for preprocedural respiratory examination; J90 Pleural effusion, not elsewhere classified; R06.09 Other forms of dyspnea
CPT/HCPCS: 99204

== ENCOUNTER → 2025-06-02 08:58 | Outpatient (BNVA) | payer MEDICARE, SELFPAY | PROVIDERS: PCP Internal Medicine; Visit Provider Hospitalist | DX: Z01.811 Encounter for preprocedural respiratory examination (principal); R05.3 Chronic cough; J90 Pleural effusion, not elsewhere classified; R06.00 Dyspnea, unspecified | CPT/HCPCS: 99202 ==